=== PATIENT | male | born 1955 | race Caucasian/White ===

== ENCOUNTER 2021-09-22 10:29 | Outpatient (CLI) | payer OTHER, SELFPAY ==
[2021-09-22 11:03] LABS: Hematocrit 48.9 % (37.0-46.0); Hemoglobin 17.6 g/dL (12.4-15.3); Mean Corpuscular Hemoglobin 34.9 pg (27.0-31.0); Mean Platelet Volume 10.3 fl (8.7-11.0); Platelet Count Result 225 K/mm3 (150-420); Red Blood Count 5.04 M/mm3 (4.70-6.10); Red Cell Distribution Width 11.8 % (11.6-14.4); White Blood Count 7.2 K/mm3 (4.8-10.8)
[2021-09-22 11:20] LABS: Alanine Aminotransferase 29 U/L (16-63); Albumin Level 3.9 g/dL (3.4-5.0); Alkaline Phosphatase 66 U/L (46-116); Anion Gap 12 mmol/L (8-16); Aspartate Amino Transferase 18 U/L (15-37); Bilirubin,Total 0.8 mg/dL (0.00-1.00); Blood Urea Nitrogen 10 mg/dL (7-18); Calcium 8.9 mg/dL (8.5-10.1); Carbon Dioxide 26 mmol/L (21-32); Chloride 99 mmol/L (98-108); Cholesterol 149 mg/dL (0-200); Estimated Glomerular Filt Rate > 60; Glucose 121 mg/dL (70-99); HDL Direct 52 mg/dL (40-60); LDL Cholesterol Calculated 85 mg/dL (<130); Osmolality Calculated 284 mOsm/kg (285-295); Potassium 3.9 mmol/L (3.5-5.1); Sodium 137 mmol/L (136-145); Total Protein 7.3 g/dL (6.4-8.2); Triglycerides 60 mg/dL (0-150)
== END 2021-09-22 10:30 | disposition home or self-care (01) ==
PROVIDERS: PCP Family Medicine; Visit Provider Family Medicine
DX: K21.9 Gastro-esophageal reflux disease without esophagitis (principal); Z00.00 Encounter for general adult medical examination without abnormal findings
CPT/HCPCS: 36415; 80053; 80061; 83013; 85027

== ENCOUNTER 2021-10-20 10:26 | Outpatient (CLI) | payer OTHER, SELFPAY ==
[2021-10-23 16:24] LABS: H pylori, Urea Breath NOT DETECTED (NOT DETECTED)
== END 2021-10-20 10:27 | disposition home or self-care (01) ==
LOC: CHSLAB 10:28
PROVIDERS: PCP Family Medicine; Visit Provider Family Medicine
DX: K21.9 Gastro-esophageal reflux disease without esophagitis (principal)
CPT/HCPCS: 83013

== ENCOUNTER 2023-09-10 14:02 | Emergency (ER) | payer MEDICARE, SELFPAY ==
--- NOTE | ~2023-09-10 | XR_ITS ---
XR chest 1V portable DATE: 09/10/2023 16:48 INDICATION: Cough TECHNIQUE: Portable AP views on 09/10/2023 at 1649 hours COMPARISON: 04/16/2019 CTA chest 04/16/2019 2 view chest FINDINGS: Normal heart size. Mild aortic unfolding. No hilar or mediastinal enlargement. Minimal atelectasis is suggested at the lung bases. The lungs otherwise appear clear of infiltrate or consolidation. No pleural effusion or pulmonary vascular congestion or pneumothorax. Osteopenia. IMPRESSION: Minimal atelectasis is suggested at the lung bases; otherwise no active cardiopulmonary d isease Reviewed, dictated and finalized at location B. [place] [facility] IMPRESSION: Minimal atelectasis is suggested at the lung bases; otherwise no ac tive cardiopulmonary disease
[2023-09-10 14:52] LABS: Influenza A QL RT-PCR Positive (Negative); Influenza B QL RT-PCR Negative (Negative); RSV RNA, RT-PCR Negative (Negative); SARS-CoV-2 RNA PCR Negative (Negative)
[2023-09-10 15:00] VITALS: BP 152/96; PULSE 70; RESP 20; TEMP 36.6; O2SAT 96
--- NOTE | 2023-09-10 16:27 | ED.URI ---
HPI - URI/Sore Throat General Chief Complaint: Upper Respiratory Infection Stated Complaint: flu symptoms Source: patient Mode of arrival: ambulatory Limitations: no limitations History of Present Illness HPI Narrative: 68-year-old male, smoker presents to the ER with a one-week history of -- cough with mucoid sputum. -- Body ache -- diarrhea. no abdominal pain. No nausea/ vomiting. patient's tested positive for influenza A. Patient denied any fever. MD elicited complaint: cough and nasal congestion Onset (ago): day(s) ( Seven days) Consistency: constant Severity: moderate Description of mucous: clear Able to tolerate fluids by mouth: Yes Exacerbating factors: nothing Relieving factors: nothing Context: sick contacts Associated symptoms: myalgias, cough, shortness of breath and diarrhea Treatments prior to arrival: none Related Data Allergies Allergy/AdvReac Type Severity Reaction Status Date / Time No Known Allergies Allergy Verified 09/10/23 15:24 Review of Systems Review of Systems: All systems reviewed & are unremarkable except as noted in HPI and below Constitutional: Constitutional: Reports as per HPI and Reports no additional constitutional complaints Eyes: Eyes: Reports as per HPI and Reports no additional eye complaints ENT: Reports system reviewed and no additional complaints, except as documented, Reports as per HPI and Reports nasal congestion Cardiovascular: Cardiovascular: Reports as per HPI and Reports no additional cardiovascular complaints Respiratory: Respiratory: Reports as per HPI, Reports no additional respiratory complaints, Reports chest congestion, Reports cough and Reports dyspnea Gastrointestinal: Gastrointestinal: Reports as per HPI, Reports no additional gastrointestinal complaints and Reports diarrhea Genitourinary: Genitourinary: Reports no additional male genitourinary complaints Musculoskeletal: Musculoskeletal: Reports no additional musculoskeletal complaints and Reports as per HPI Integumentary/Breasts: Skin/Breast: Reports system reviewed and no additional complaints, except as docu and Reports as per HPI Neurologic: Reports system reviewed and no additional complaints, except as documented and Reports as per HPI Psychiatric: Psychiatric: Reports no additional psychiatric complaints and Reports as per HPI Endocrine: Endocrine: Reports no additional endocrine complaints and Reports as per HPI Hematologic/Lymphatic: Hematologic/Lymphatic: Reports no additional hematologic/lymphatic complaints and Reports as per HPI Allergic/Immunologic: Allergic/Immunologic: Reports no additional allergic/immunologic complaints and Reports as per HPI [facility] Surgical History Surgical History History of hernia repair Family History Family History Father Family history of heart disease in male family member before age 55 Other Family history of allergic disorder Family history of cardiovascular disease Social History Social History Smoking packs per day: 1 Smoking cigarettes per day: 20.0 Years smoked: 50 Smoking pack-years: 50.00 Smoking status: Current every day smoker Tobacco type: cigarettes Alcohol intake: current Exam Const: General: ill appearing Orientation/consciousness: patient oriented x3 Limitations: no limitations HENMT: Head: normal to inspection Ears: external ears normal Face/Nose/Sinus: Normal external nose present Face and sinus: normal facial exam Mouth: Yes Normal oral and palatal mucosa present Throat: posterior oropharynx normal Eyes: Conjunctivae: conjunctivae normal Pupils: Equal, round and reactive pupils present EOM: EOMs intact bilaterally Direct Ophthalmoscopy: no photophobia Neck: Neck: normal visual inspection, no lymphadenopathy and no meningeal sign
[2023-09-10] MEDS: IPRATROPIUM 0.5 MG/ALBUTEROL SULFATE 2.5 MG AMPUL.NEB 3 ML INHALATION (16:48)
== END 2023-09-10 17:10 | disposition home or self-care (01) ==
PROVIDERS: Emergency Provider Internal Medicine Critical Care Medicine; PCP Nurse Practitioner Family
DX: J10.1 Influenza due to other identified influenza virus with other respiratory manifestations (principal); J20.9 Acute bronchitis, unspecified; F17.210 Nicotine dependence, cigarettes, uncomplicated; Z20.822 Contact with and (suspected) exposure to COVID-19
CPT/HCPCS: 71045; 87637; 99283

== ENCOUNTER 2024-01-22 23:32 | Emergency (ER) | payer MEDICARE, SELFPAY ==
--- NOTE | ~2024-01-22 | CT_ITS ---
CT of the Abdomen and Pelvis: Indication: Abdominal pain Technique: 2.5 mm axial scans were obtained through the abdomen and pelvis following intravenous adm inistration of 100 cc of Omnipaque 350. Dose reduction technique was used on this scan by utilizing a utomated exposure control and iterative reconstruction technique. The dose-length product (DLP) was 9 73.10 mGy-cm. Findings: Scans through the lung bases are unremarkable. The liver, spleen, pancreas, gallbladder, adrenals and kidneys are within normal limits. There are at herosclerotic calcifications of the aorta. There is a 4 cm infrarenal abdominal aortic aneurysm focal ly. No lymphadenopathy. There is wall thickening and pericolonic inflammatory change at the mid descending colon, compatible with acute diverticulitis. No abscess or free air. No bowel obstruction. Images through the pelvis were performed. Urinary bladder unremarkable. No pelvic mass seen. No ascit es. Impression: Acute diverticulitis at the mid descending colon. No abscess, free air, or bowel obstruction. 4 cm infrarenal abdominal aortic aneurysm. Reviewed, dictated and finalized at [facility]. Impression: Acute diverticulitis at the mid descending colon. No abscess, free air, or mervat l obstruction. 4 cm infrarenal abdominal aortic aneurysm.
[2024-01-22 23:32] VITALS: TEMP 37.3
[2024-01-22 23:38] VITALS: BP 160/105; PULSE 85; RESP 18; O2SAT 95
--- NOTE | 2024-01-22 23:43 | ECG_ITS ---
Test Date: 2024-01-22 23:59:29 Measurements Intervals [place] Rate: 77 P: -9 SC: 226 QRS: -60 QRSD: 160 T: 25 QT: 413 QTc: 468 Interpretive Statements SINUS RHYTHM WITH FIRST DEGREE AV BLOCK RIGHT BUNDLE BRANCH BLOCK [120+ ms QRS DURATION, UPRIGHT V1, 40+ ms S IN I/aVL/V4/V5/V6] LEFT ANTERIOR FASCICULAR BLOCK [QRS AXIS <= -45, QR IN I, RS IN II] POSSIBLE SEPTAL MYOCARDIAL INFARCTION , OF INDETERMINATE AGE [30 ms Q WAVE IN V1/V2] Abnormal ECG No previous ECG available for comparison Electronically Signed On 01-26-2024 11:25:08 CDT by Jonas Littlejohn M.D.
[2024-01-22 23:58] LABS: Basophils Absolute Auto 0.07 K/mm3 (0.00-0.10); Basophils Percent Auto 0.7 % (0.0-1.0); Eosinophils Absolute Auto 0.37 K/mm3 (0.02-0.50); Eosinophils Percent Auto 3.6 % (1.0-6.0); Hematocrit 45.3 % (37.0-46.0); Hemoglobin 15.8 g/dL (12.4-15.3); Immature Granulocyte Absolute 0.05 K/mm3 (0.00-0.00); Immature Granulocyte Percent A 0.5 % (0.0-0.0); Lymphocytes Absolute Auto 1.54 K/mm3 (1.10-4.50); Lymphocytes Percent Auto 14.8 % (18.0-42.0); Mean Corpuscular HGB Conc 34.9 g/dL (32-36); Mean Corpuscular Hemoglobin 34.6 pg (27.0-31.0); Mean Corpuscular Volume 99.3 fL (78.0-102.0); Mean Platelet Volume 10.3 fl (8.7-11.0); Monocytes Percent Auto 8.6 % (2.0-11.0); Neutrophils Absolute Auto 7.49 K/mm3 (1.70-7.20); Neutrophils Percent Auto 71.8 % (50.0-70.0); Platelet Count Result 169 K/mm3 (150-420); Red Blood Count 4.56 M/mm3 (4.70-6.10); Red Cell Distribution Width 12.8 % (11.6-14.4); White Blood Count 10.4 K/mm3 (4.8-10.8)
[2024-01-23 00:12] LABS: INR 0.9; Partial Thromboplastin Time 26.8 Sec (23.9-30.70); Prothrombin Time 10.3 Seconds (9.50-12.1)
[2024-01-23 00:25] LABS: Alanine Aminotransferase 16 U/L (16-63); Albumin Level 3.3 g/dL (3.4-5.0); Alkaline Phosphatase 69 U/L (46-116); Anion Gap 9 mmol/L (4-12); Aspartate Amino Transferase 14 U/L (15-37); Bilirubin,Total 0.4 mg/dL (0.00-1.00); Blood Urea Nitrogen 13 mg/dL (7-18); Calcium 8.3 mg/dL (8.5-10.1); Carbon Dioxide 27 mmol/L (21-32); Chloride 104 mmol/L (98-108); Estimated CRCL calculation 85 ml/min; Estimated Glomerular Filt Rate > 60; Glucose 105 mg/dL (70-99); Lipase 38 U/L (16-77); Osmolality Calculated 290 mOsm/kg (285-295); Potassium 3.6 mmol/L (3.5-5.1); Sodium 140 mmol/L (136-145); Total Protein 6.7 g/dL (6.4-8.2)
--- NOTE | 2024-01-23 00:26 | ED.ABDPAIN ---
HPI - Abdominal Pain General Chief Complaint: Abdominal Pain Stated Complaint: lower left quadrant pain Time Seen by Provider: 01/22/24 23:35 Source: patient and EMS Mode of arrival: EMS Limitations: no limitations History of Present Illness HPI narrative: this is a 68-year-old male with no significant past medical history presents via EMS with abdominal pain started earlier today no nausea vomiting chest pain no shortness of breath. No fever chills, patient with no diarrhea or constipation, has a history of diverticulitis. MD elicited complaint: abdominal pain Onset (ago): hour(s) Pain Consistency: constant Location: LLQ Severity: moderate Pain scale (0-10): 6 Quality: aching Related Data Home Medications Medication Instructions Recorded Confirmed pantoprazole 40 mg tablet,delayed 40 mg PO 4XW 01/22/24 01/22/24 release Allergies Allergy/AdvReac Type Severity Reaction Status Date / Time No Known Allergies Allergy Verified 01/22/24 23:51 Review of Systems Review of Systems: All systems reviewed & are unremarkable except as noted in HPI and below PMFSH Past Medical History Medical History Tobacco abuse Surgical History Surgical History History of hernia repair Family History Family History Father Family history of heart disease in male family member before age 55 Other Family history of allergic disorder Family history of cardiovascular disease Social History Social History Smoking packs per day: 1 Smoking cigarettes per day: 20.0 Years smoked: 50 Smoking pack-years: 50.00 Smoking status: Current every day smoker Tobacco type: cigarettes Alcohol intake: current Exam Const: General: healthy appearing and no acute distress Nutritional Appearance: well nourished Orientation/consciousness: patient oriented x3 Limitations: no limitations Eyes: Conjunctivae: conjunctivae normal Resp: Effort & Inspection: normal respiratory effort Auscultation: clear to auscultation bilaterally Cardio: Rate: regular rate Rhythm: regular rhythm GI: GI Palp: Yes Soft to palpation and Yes Tenderness to palpation present (GI) Auscultation: normal bowel sounds : General: Yes bladder normal to palpation Back/Spine/Pelvis: Back: no CVA tenderness Skin: General skin exam: normal color Rashes: no rashes Neuro: General: patient oriented x3, moves all extremities and no meningeal signs Course Course Emergency Course: blood work performed shows a white blood cell count of 10.9, CT scan performed shows that he has acute diverticulitis distal descending colon with no perforation or abscess, will start IV Cipro and IV Flagyl. Pain controlled with some dose of 30mg IV Toradol patient also given IV fluids. Vital Signs Vital signs: Vital Signs Temperature 37.3 C 01/22/24 23:32 Temperature 37.3 C 01/22/24 23:32 Pulse Rate 85 01/22/24 23:38 Respiratory Rate 18 01/22/24 23:38 Blood Pressure 160/105 H 01/22/24 23:38 Pulse Oximetry 95 01/22/24 23:38 Oxygen Delivery Room Air 01/22/24 23:38 MDM - Abdominal Pain Lab Data 01/22/24 23:53 01/22/24 23:53 Labs: Lab Results 01/22/24 Range/Units 23:53 WBC 10.4 (4.8-10.8) K/mm3 RBC 4.56 L (4.70-6.10) M/mm3 Hgb 15.8 H (12.4-15.3) g/dL Hct 45.3 (37.0-46.0) % MCV 99.3 (78.0-102.0) fL MCH 34.6 H (27.0-31.0) pg MCHC 34.9 (32-36) g/dL RDW 12.8 (11.6-14.4) % Plt Count 169 (150-420) K/mm3 MPV 10.3 (8.7-11.0) fl Immature Gran % (Auto) 0.5 H (0.0-0.0) % Neut % (Auto) 71.8 H (50.0-70.0) % Lymph % (Auto) 14.8 L (18.0-42.0) % [place] % (Auto) 8.6 (2.0-11.0) % Eos % (Auto) 3.6 (1.0-6.0) % Baso % (Auto) 0.7 (0.0-1.0) % Ly
[2024-01-23] MEDS: SODIUM CHLORIDE 0.9% IV 1,000 ML 999 ML IV CONT (00:44)
[2024-01-23] MEDS: KETOROLAC 30 MG/ML VIAL (*BKC) IV PUSH (00:45)
[2024-01-23] MEDS: metroNIDAZOLE 500 MG/ISO 100ML 500 MG/100 ML BAG 100 MG IVPB (05:11)
[2024-01-23] MEDS: CIPROFLOXACIN 400 MG/D5W 200ML 200 ML 200 MG IVPB (05:12)
[2024-01-23 05:52] VITALS: BP 178/104; PULSE 70; RESP 18; TEMP 36.6; O2SAT 97
--- NOTE | 2024-01-29 12:42 | PC.NURSE ---
final blood cultures x2 reviewed. no growth after 5 days. no change in plan of care
== END 2024-01-23 06:00 | disposition home or self-care (01) ==
PROVIDERS: Emergency Provider Emergency Medicine; PCP Family Medicine
DX: K57.92 Diverticulitis of intestine, part unspecified, without perforation or abscess without bleeding (principal); F17.210 Nicotine dependence, cigarettes, uncomplicated
CPT/HCPCS: 36415; 74177; 80053; 83605; 83690; 85025; 85610; 85730; 87040; 93005; 96361; 96365; 96368; 96375; 99284; J0744; J1836; J1885; J7030; Q9967

== ENCOUNTER 2024-11-10 15:21 | Outpatient (CLI) | payer MEDICARE, SELFPAY ==
--- NOTE | ~2024-11-10 | XR_ITS ---
EXAMINATION: XR chest 2V 11/10/2024 16:13 INDICATION: Tachycardia PROCEDURE: 2 view chest COMPARISON: 09/10/2023 FINDINGS: Bibasilar airspace disease may represent atelectasis or pneumonia. The cardiomediastinal si lhouette is within normal limits. There are no pleural effusions. There is no pneumothorax suspecte d. There is dextroscoliosis of the lower thoracic spine. IMPRESSION: 1: Bibasilar airspace disease, atelectasis versus pneumonia. Reviewed, dictated and finalized at location A.
--- NOTE | 2024-11-10 15:43 | ECG_ITS ---
Test Date: 2024-11-10 15:57:17 Measurements Intervals [place] Rate: 128 P: 0 MA: 0 QRS: -33 QRSD: 172 T: 65 QT: 377 QTc: 551 Interpretive Statements ATRIAL FLUTTER/TACHYCARDIA WITH RAPID VENTRICULAR RESPONSE LEFT AXIS DEVIATION RIGHT BUNDLE BRANCH BLOCK ABNORMAL ECG Compared to ECG 01/22/2024 23:59:29 SINUS RHYTHM NO LONGER PRESENT Electronically Signed On 11-10-2024 15:59:03 CDT by Dwight Olmedo D.O.
[2024-11-10 15:51] LABS: Basophils Absolute Auto 0.08 K/mm3 (0.00-0.10); Basophils Percent Auto 1.1 % (0.0-1.0); Eosinophils Absolute Auto 0.28 K/mm3 (0.02-0.50); Hematocrit 47.6 % (37.0-46.0); Hemoglobin 15.7 g/dL (12.4-15.3); Immature Granulocyte Absolute 0.04 K/mm3 (0.00-0.00); Immature Granulocyte Percent A 0.6 % (0.0-0.0); Lymphocytes Percent Auto 24.4 % (18.0-42.0); Mean Corpuscular Hemoglobin 32.8 pg (27.0-31.0); Mean Corpuscular Volume 99.4 fL (78.0-102.0); Monocytes Absolute Auto 0.47 K/mm3 (0.10-0.90); Monocytes Percent Auto 6.7 % (2.0-11.0); Neutrophils Percent Auto 63.2 % (50.0-70.0); Platelet Count Result 192 K/mm3 (150-420); Red Blood Count 4.79 M/mm3 (4.70-6.10); Red Cell Distribution Width 12.9 % (11.6-14.4)
[2024-11-10 16:34] LABS: Alanine Aminotransferase 31 U/L (16-63); Albumin Level 4.1 g/dL (3.4-5.0); Alkaline Phosphatase 82 U/L (46-116); Anion Gap 8 mmol/L (4-12); Aspartate Amino Transferase 18 U/L (15-37); Bilirubin,Total 0.8 mg/dL (0.00-1.00); Blood Urea Nitrogen 12 mg/dL (7-18); Calcium 9.1 mg/dL (8.5-10.1); Carbon Dioxide 28 mmol/L (21-32); Chloride 104 mmol/L (98-108); Cholesterol 162 mg/dL (0-200); Estimated Glomerular Filt Rate > 60; Free T4 Free Thyroxine 1.15 ng/dL (0.76-1.46); Glucose 103 mg/dL (70-99); HDL Direct 50 mg/dL (40-60); LDL Cholesterol Calculated 100 mg/dL (<130); Magnesium 2.2 mg/dL (1.8-2.4); Osmolality Calculated 289 mOsm/kg (285-295); Potassium 3.9 mmol/L (3.5-5.1); Sodium 140 mmol/L (136-145); Total Protein 7.5 g/dL (6.4-8.2); Triglycerides 61 mg/dL (0-150)
[2024-11-10 17:12] LABS: Thyroid Stimulating Hormone 1.05 uIU/mL (0.36-3.74)
[2024-11-12 03:23] LABS: Total Triiodothyronine (T3) 101 ng/dL (76-181)
== END 2024-11-10 15:22 | disposition home or self-care (01) ==
PROVIDERS: PCP Nurse Practitioner Family; Visit Provider Nurse Practitioner Family
DX: E03.9 Hypothyroidism, unspecified (principal); R00.0 Tachycardia, unspecified; Z13.6 Encounter for screening for cardiovascular disorders; I10 Essential (primary) hypertension; R79.89 Other specified abnormal findings of blood chemistry; R91.8 Other nonspecific abnormal finding of lung field; I45.10 Unspecified right bundle-branch block; R94.31 Abnormal electrocardiogram [ECG] [EKG]
CPT/HCPCS: 36415; 71046; 80053; 80061; 83735; 84439; 84443; 84480; 85025; 93005

== ENCOUNTER 2024-11-12 07:57 | Outpatient (CLI) | payer MEDICARE, SELFPAY ==
--- NOTE | 2024-11-12 08:06 | ECG_ITS ---
Test Date: 2024-11-12 08:21:27 Measurements Intervals [place] Rate: 127 P: 0 [place]: 0 QRS: -31 QRSD: 154 T: 68 QT: 361 QTc: 527 Interpretive Statements ATRIAL FLUTTER/TACHYCARDIA WITH RAPID VENTRICULAR RESPONSE LEFT AXIS DEVIATION RIGHT BUNDLE BRANCH BLOCK BASELINE ARTIFACT- I, III, AVR, AVL, AVF, V1-V4 ABNORMAL ECG Compared to ECG 11/10/2024 15:57:17 NO SIGNIFICANT CHANGE Electronically Signed On 11-12-2024 08:33:20 CDT by Dwight Olmedo D.O.
== END 2024-11-12 07:58 | disposition home or self-care (01) ==
LOC: CHSCARD 07:58
PROVIDERS: PCP Nurse Practitioner Family; Visit Provider Nurse Practitioner Family
DX: I48.91 Unspecified atrial fibrillation (principal); R00.0 Tachycardia, unspecified; I45.10 Unspecified right bundle-branch block; R94.31 Abnormal electrocardiogram [ECG] [EKG]
CPT/HCPCS: 93005

== ENCOUNTER 2024-11-12 08:30 | Emergency (ER) | payer MEDICARE, SELFPAY ==
[2024-11-12] VITALS (22 sets, daily range): BP systolic 114–161; BP diastolic 88–128; PULSE 99–129; RESP 13–26; TEMP 36.2; O2SAT 92–97
--- NOTE | ~2024-11-12 | CT_ITS ---
Clinical Indication: Shortness of breath CT Scan of the Chest with Contrast: Technique: Contiguous sections were acquired throughout the chest after intravenous administration of 100 cc of Omnipaque 350. Dose reduction technique was used on this scan by utilizing automated expos ure control and iterative reconstruction technique. The dose-length product (DLP) was 726.41 mGy-cm. Findings: There is no evidence of any significant mediastinal, hilar or axillary lymphadenopathy. There is no f illing defect in the pulmonary arterial tree to suggest pulmonary embolus. There is no evidence of ao rtic aneurysm. No pericardial effusion. Small right pleural effusion and minimal left pleural effusion are present. There is minimal interstitial edema at the lung bases. Images through the upper abdomen reveal no abnormalities. Impression: No evidence of pulmonary embolus, aortic dissection, or aortic aneurysm. Small right pleural effusion and minimal left pleural effusion Minimal interstitial edema at the lung bases. Reviewed, dictated and finalized at [facility]. Impression: No evidence of pulmonary embolus, aortic dissection, or aortic aneurysm. Small right pleural effusion and minimal left pleural effusion Minimal interstitial edema at the lung bases.
--- NOTE | ~2024-11-12 | XR_ITS ---
EXAMINATION: XR chest 1V portable DATE: 11/12/2024 09:23 INDICATION: Shortness of breath TECHNIQUE: frontal view of the chest was obtained. COMPARISON: Chest radiograph dated 11/10/2024 FINDINGS: Interval improvement in now minimal left basilar opacities which could represent atelectasis or pneum onia. Right lung is clear. No pulmonary edema, pleural effusion or pneumothorax. The cardiomediastina l silhouette is normal. IMPRESSION: 1. Interval improvement in normal left basilar atelectasis versus pneumonia. Reviewed, dictated and finalized at location A.
--- NOTE | 2024-11-12 08:38 | ED_ITS ---
HPI - Arrhythmia/Palpitations General Chief Complaint: Recheck/Abnormal Lab/Rx Stated Complaint: abnormal EKG Time Seen by Provider: 11/12/24 08:38 Source: patient Mode of arrival: ambulatory Limitations: no limitations History of Present Illness HPI narrative: patient is a 69-year-old male that has new onset atrial flutter with RVR sent to the emergency room the primary doctor. Patient is asymptomatic. No palpitations or chest pain. He does have some shortness of breath and was put on azithromycin yesterday for bronchitis. he had an EKG for the shortness of breath and they found the atrial flutter. patient is not currently on blood pressure medicine as of 2 days ago. They just restarted his medicine. on further review of the EKG, it appears this is sinus tachycardia and not atrial flutter. MD complaint: rapid heart beat ( On EKG) Onset (ago): unknown Duration: constant Severity: mild Context: other ( Patient was found to have atrial flutter on EKG for shortness of breath by primary doctor and sent for evaluation and treatment to the ER today) Arrhythmia history: other ( hypertension, GERD, COPD) Associated symptoms: shortness of breath Treatments prior to arrival: other ( none) Related Data Home Medications ?Medication ?Instructions ?Recorded ?Confirmed ?Last Taken ?Type pantoprazole 40 mg tablet,delayed 40 mg PO 4XW 01/22/24 11/10/24 Unknown History release Allergies Allergy/AdvReac Type Severity Reaction Status Date / Time No Known Allergies Allergy Verified 11/12/24 08:53 Review of Systems 2 Review of Systems: All systems reviewed & are unremarkable except as noted in HPI and below Constitutional: Constitutional: Reports no additional constitutional complaints Eyes: Eyes: Reports no additional eye complaints ENT: Reports system reviewed and no additional complaints, except as documented Cardiovascular: Cardiovascular: Reports no additional cardiovascular complaints Respiratory: Respiratory: Reports no additional respiratory complaints Gastrointestinal: Gastrointestinal: Reports no additional gastrointestinal complaints Genitourinary: Genitourinary: Reports no additional male genitourinary complaints Musculoskeletal: Musculoskeletal: Reports no additional musculoskeletal complaints Integumentary/Breasts: Skin/Breast: Reports system reviewed and no additional complaints, except as docu Neurologic: Reports system reviewed and no additional complaints, except as documented Psychiatric: Psychiatric: Reports no additional psychiatric complaints Endocrine: Endocrine: Reports no additional endocrine complaints Hematologic/Lymphatic: Hematologic/Lymphatic: Reports no additional hematologic/lymphatic complaints Allergic/Immunologic: Allergic/Immunologic: Reports no additional allergic/immunologic complaints [facility] Past Medical History Medical History Tobacco abuse Surgical History Surgical History History of hernia repair Family History Family History Father Family history of heart disease in male family member before age 55 Other Family history of allergic disorder Family history of cardiovascular disease Social History Social History Smoking packs per day: 1 Smoking cigarettes per day: 20.0 Years smoked: 50 Smoking pack-years: 50.00 Smoking status: Current every day smoker Tobacco type: cigarettes Alcohol intake: current Exam 2 Const: General: healthy appearing Nutritional Appearance: well nourished Orientation/consciousness: patient oriented x3 Limitations: no limitations HENMT: Head: normal to inspection Ears: external ears normal F coral/Nose/Sinus: Normal external nose present Eyes: Conjunctivae: conjunctivae normal Pupils: Equal, round and reactive pupils present EOM: EOMs intact bilaterally Neck: Neck: normal visual inspection Chest: Chest palpation & inspection: normal inspection of the chest Resp: Effort & Inspection: normal respiratory effort and not labored A uscultation: clear to auscultation bilaterally and no crackles Cardio: Rate: tachycardic Rhythm: abnormal rhythm Heart sounds: no murmurs GI: Inspection: non-distended Auscultation: normal bowel sounds : General: Yes bladder normal to palpation Back/Spine/Pelvis: Back: no CVA tenderness Skin: General skin exam: normal color Rashes: no rashes Wounds: no wounds Neuro: General: patient oriented x3 Cranial nerves: Yes Nystagmus not present Speech: normal speech Gait exam (Neuro): Normal gait present Extrem: General: normal to inspection Psych: Mental Status: mental status grossly normal Affect: normal affect Attitude: cooperative Course Vital Signs Vital signs: Vital Signs Temperature 36.2 C L 11/12/24 08:30 Pulse Rate 128 H 11/12/24 08:30 Respiratory Rate 20 11/12/24 08:30 Blood Pressure 161/123 H 11/12/24 08:30 Pulse Oximetry 97 11/12/24 08:30 Oxygen Delivery Room Air 11/12/24 08:30 Temperature 36.2 C L 11/12/24 08:30 Pulse Rate 123 H 11/12/24 11:24 Respiratory Rate 20 11/12/24 11:16 Blood Pressure 125/98 H 11/12/24 11:24 Pulse Oximetry 92 11/12/24 11:16 Oxygen Delivery Room Air 11/12/24 08:30 MDM - Arrhythmia/Palpitations MDM Narrative Medical decision making narrative: Patient is 69-year-old male with new onset atrial flutter and RVR found for shortness of breath workup by primary doctor today; actually, he is having sinus tachycardia and not atrial flutter on further examination of EKG. We will do a cardiopulmonary workup at this time. patient has been going back and forth from normal sinus rhythm at times to a flutter/ fib with RVR. He has responded to 20 mg of labetalol now. His blood pressure however is going back up at this time. Cardiology suggested for assistance.The patient decided to go AMA after we reviewed risks and benefits of being transferred to [facility] for Cardiology. Patient is AAO x4. Patient has the decision making capacity and reasoning abilities to make decision for AMA. He understands the risks and benefits. He signed the AMA form. I explained that he has AFib and flutter with hypertension and tachycardia which will need cardiology opinion at this time. I will give him a beta-markell to cover both of those problems temporarily. He said he has to go home to care for his . He also has elevated BNP which could relate to a valvular disease or other cardiac issue. Patient understands that he could get worse or even could occur. Patient has no psychosis or other medical or mental issue to stop him from making capacity decision for AMA. Lab Data Attestation: I reviewed the patient's lab results. 11/12/24 09:30 11/12/24 09:30 Labs: Lab Results 11/12/24 11/12/24 11/12/24 Range/Units 09:30 09:32 09:52 WBC 6.8 (4.8-10.8) K/mm3 RBC 4.70 (4.70-6.10) M/mm3 Hgb 15.7 H (12.4-15.3) g/dL Hct 46.3 H (37.0-46.0) % MCV 98.5 (78.0-102.0) fL MCH 33.4 H (27.0-31.0) pg MCHC 33.9 (32-36) g/dL RDW 13.0 (11.6-14.4) % Plt Count 160 (150-420) K/mm3 MPV 10.9 (8.7-11.0) fl Immature Gran % (Auto) 0.4 H (0.0-0.0) % Neut % (Auto) 65.7 (50.0-70.0) % Lymph % (Auto) 20.1 (18.0-42.0) % [place] % (Auto) 8.5 (2.0-11.0) % Eos % (Auto) 4.1 (1.0-6.0) % Baso % (Auto) 1.2 H (0.0-1.0) % Lymph # (Auto) 1.37 (1.10-4.50) K/mm3 [place] # (Auto) 0.58 (0.10-0.90) K/mm3 Eos # (Auto) 0.28 (0.02-0.50) K/mm3 Baso # (Auto) 0.08 (0.00-0.10) K/mm3 Abs Immat Gran (auto) 0.03 H (0.00-0.00) K/mm3 Absolute Neuts (auto) 4.46 (1.70-7.20) K/mm3 Absolute Nucleated RBC 0.00 (0.00-0.00) K/mm3 Nucleated RBC % 0.0 (0-0.0) % PT 11.3 (9.50-12.1) Seconds INR 1.0 APTT 26.6 (23.9-30.70) Sec D-Dimer 0.84 H* (0.19-0.50) mg/L Sodium 140 (136-145) mmol/L Potassium 3.8 (3.5-5.1) mmol/L Chloride 104 (98-108) mmol/L Carbon Dioxide 29 (21-32) mmol/L Anion Gap 7 (4-12) mmol/L BUN 15 (7-18) mg/dL Creatinine 1.07 (0.70-1.30) mg/dL Estim Creat Clear Calc 75 ml/min Estimated GFR > 60 (59 - ) Glucose 98 (70-99) mg/dL Calculated Osmolality 290 (285-295) mOsm/kg Lactic Acid 1.3 (0.4-2.0) mmol/L Calcium 8.8 (8.5-10.1) mg/dL Magnesium (1.8-2.4) mg/dL Total Bilirubin 1.1 H (0.00-1.00) mg/dL AST 15 (15-37) U/L ALT 24 (16-63) U/L Alkaline Phosphatase 86 (46-116) U/L Troponin I 29.3 (0.00-60.4) ng/L NT-Pro-B Natriuret Pep 5841 H (0-125) pg/mL Total Protein 7.6 (6.4-8.2) g/dL Albumin 3.9 (3.4-5.0) g/dL TSH 1.31 (0.36-3.74) uIU/mL Influenza A (RT-PCR) Negative (Negative) Influenza B (RT-PCR) Negative (Negative) RSV (RT-PCR) Negative (Negative) SARS-CoV-2 RNA (RT-PCR) Negative (Negative) 11/12/24 Range/Units 10:35 WBC (4.8-10.8) K/mm3 RBC (4.70-6.10) M/mm3 Hgb (12.4-15.3) g/dL Hct (37.0-46.0) % MCV (78.0-102.0) fL MCH (27.0-31.0) pg MCHC (32-36) g/dL RDW (11.6-14.4) % Plt Count (150-420) K/mm3 MPV (8.7-11.0) fl Immature Gran % (Auto) (0.0-0.0) % Neut % (Auto) (50.0-70.0) % Lymph % (Auto) (18.0-42.0) % [place] % (Auto) (2.0-11.0) % Eos % (Auto) (1.0-6.0) % Baso % (Auto) (0.0-1.0) % Lymph # (Auto) (1.10-4.50) K/mm3 [place] # (Auto) (0.10-0.90) K/mm3 Eos # (Auto) (0.02-0.50) K/mm3 Baso # (Auto) (0.00-0.10) K/mm3 Abs Immat Gran (auto) (0.00-0.00) K/mm3 Absolute Neuts (auto) (1.70-7.20) K/mm3 Absolute Nucleated RBC (0.00-0.00) K/mm3 Nucleated RBC % (0-0.0) % PT (9.50-12.1) Seconds INR APTT (23.9-30.70) Sec D-Dimer (0.19-0.50) mg/L Sodium (136-145) mmol/L Potassium (3.5-5.1) mmol/L Chloride (98-108) mmol/L Carbon Dioxide (21-32) mmol/L Anion Gap (4-12) mmol/L BUN (7-18) mg/dL Creatinine (0.70-1.30) mg/dL Estim Creat Clear Calc ml/min Estimated GFR (59 - ) Glucose (70-99) mg/dL Calculated Osmolality (285-295) mOsm/kg Lactic Acid (0.4-2.0) mmol/L Calcium (8.5-10.1) mg/dL Magnesium 2.0 (1.8-2.4) mg/dL Total Bilirubin (0.00-1.00) mg/dL AST (15-37) U/L ALT (16-63) U/L Alkaline Phosphatase (46-116) U/L Troponin I (0.00-60.4) ng/L NT-Pro-B Natriuret Pep (0-125) pg/mL Total Protein (6.4-8.2) g/dL Albumin (3.4-5.0) g/dL TSH (0.36-3.74) uIU/mL Influenza A (RT-PCR) (Negative) Influenza B (RT-PCR) (Negative) RSV (RT-PCR) (Negative) SARS-CoV-2 RNA (RT-PCR) (Negative) Imaging Data Attestation: I personally reviewed and interpreted this imaging study as follows: Radiologist's impression: Chest x-ray shows resolving pneumonia left lung base CTA of the chest is negative for PE and any other acute process at this time ECG Data EKG #1: Attestation: I personally reviewed and interpreted this ECG as follows: ECG completion date: 11/12/24 ECG completion time: 09:27 Prior ECG tracings: available for review Interpretation: EKG brought to the emergency room done at 8:00 a.m. this morning showed atrial flutter with RVR on the report but actually on examination of the EKG it is sinus tachycardia EKG Interpretation: tachycardia, sinus rhythm, no ectopy, non-specific ST changes, normal QRS, RBBB, normal QT and NL axis Discharge Plan Discharge Clinical Impression: Atrial fib/flutter, transient, Asymptomatic hypertensive urgency, Elevated brain natriuretic peptide (BNP) level, Tachycardia Patient Disposition: Left Against Medical Advice Condition: Guarded Prognosis Patient Language: [place] Prescriptions: New metoprolol succinate [Toprol XL] 25 mg tablet extended release 24 hr 25 mg PO DAILY Qty: 30 0RF No Action pantoprazole 40 mg tablet,delayed release (DR/EC) 40 mg PO 4XW azithromycin [Zithromax Z-Usama] 250 mg tablet See Rx Instructions PO .COMPLEX Qty: 6 0RF Rx Instructions: take 500 mg today (day 1), then 250 mg for 4 days (days 2-5) PO lisinopril-hydrochlorothiazide 10-12.5 mg tablet 1 tablet PO DAILY Qty: 30 3RF Airsupra 90-80 mcg/actuation HFA aerosol inhaler 2 inh inhalation ONCE Qty: 5.9 0RF Rx Instructions: *SAMPLE* LOT:[id number] EXP: 03/11/25 [facility]:[id number] 1 BOX GIVEN Follow-up/Referrals: Taylor Najera NP [Primary Care Provider] - Time of Disposition: 12:18
--- NOTE | 2024-11-12 09:09 | ECG_ITS ---
Test Date: 2024-11-12 09:24:37 Measurements Intervals [place] Rate: 127 P: 48 DC: 218 QRS: -27 QRSD: 166 T: 74 QT: 368 QTc: 536 Interpretive Statements ATRIAL FLUTTER/TACHYCARDIA WITH RAPID VENTRICULAR RESPONSE RIGHT BUNDLE BRANCH BLOCK BASELINE ARTIFACT- I, II, III, AVR, AVL ABNORMAL ECG Compared to ECG 11/12/2024 08:21:27 NO SIGNIFICANT CHANGE Electronically Signed On 11-12-2024 09:36:15 CDT by Dwight Olmedo D.O.
[2024-11-12] MEDS: LABETALOL HCL INJ 100 MG/20 ML VIAL 10 MG IV PUSH ×3 (09:21→11:57)
[2024-11-12 09:36] LABS: Basophils Absolute Auto 0.08 K/mm3 (0.00-0.10); Basophils Percent Auto 1.2 % (0.0-1.0); Eosinophils Absolute Auto 0.28 K/mm3 (0.02-0.50); Eosinophils Percent Auto 4.1 % (1.0-6.0); Hematocrit 46.3 % (37.0-46.0); Hemoglobin 15.7 g/dL (12.4-15.3); Immature Granulocyte Absolute 0.03 K/mm3 (0.00-0.00); Immature Granulocyte Percent A 0.4 % (0.0-0.0); Lymphocytes Absolute Auto 1.37 K/mm3 (1.10-4.50); Lymphocytes Percent Auto 20.1 % (18.0-42.0); Mean Corpuscular HGB Conc 33.9 g/dL (32-36); Mean Corpuscular Hemoglobin 33.4 pg (27.0-31.0); Mean Corpuscular Volume 98.5 fL (78.0-102.0); Mean Platelet Volume 10.9 fl (8.7-11.0); Monocytes Absolute Auto 0.58 K/mm3 (0.10-0.90); Monocytes Percent Auto 8.5 % (2.0-11.0); Neutrophils Absolute Auto 4.46 K/mm3 (1.70-7.20); Neutrophils Percent Auto 65.7 % (50.0-70.0); Platelet Count Result 160 K/mm3 (150-420); White Blood Count 6.8 K/mm3 (4.8-10.8)
[2024-11-12 09:54] LABS: Lactic Acid Reflex 1.3 mmol/L (0.4-2.0)
[2024-11-12 09:58] LABS: NT Pro B Type Natriuretic Pept 5841 pg/mL (0-125)
[2024-11-12 10:00] LABS: Partial Thromboplastin Time 26.6 Sec (23.9-30.70); Prothrombin Time 11.3 Seconds (9.50-12.1)
[2024-11-12 10:02] LABS: Alanine Aminotransferase 24 U/L (16-63); Albumin Level 3.9 g/dL (3.4-5.0); Alkaline Phosphatase 86 U/L (46-116); Anion Gap 7 mmol/L (4-12); Aspartate Amino Transferase 15 U/L (15-37); Bilirubin,Total 1.1 mg/dL (0.00-1.00); Blood Urea Nitrogen 15 mg/dL (7-18); Calcium 8.8 mg/dL (8.5-10.1); Carbon Dioxide 29 mmol/L (21-32); Chloride 104 mmol/L (98-108); D Dimer 0.84 mg/L (0.19-0.50); Estimated CRCL calculation 75 ml/min; Estimated Glomerular Filt Rate > 60; Glucose 98 mg/dL (70-99); Osmolality Calculated 290 mOsm/kg (285-295); Potassium 3.8 mmol/L (3.5-5.1); Sodium 140 mmol/L (136-145); Thyroid Stimulating Hormone 1.31 uIU/mL (0.36-3.74); Total Protein 7.6 g/dL (6.4-8.2); Troponin I 29.3 ng/L (0.00-60.4)
[2024-11-12 10:34] LABS: Influenza A QL RT-PCR Negative (Negative); Influenza B QL RT-PCR Negative (Negative); RSV RNA, RT-PCR Negative (Negative); SARS-CoV-2 RNA PCR Negative (Negative)
--- NOTE | 2024-11-12 10:38 | ECG_ITS ---
Test Date: 2024-11-12 10:46:55 Measurements Intervals [place] Rate: 110 P: 0 VT: 0 QRS: -82 QRSD: 157 T: 80 QT: 366 QTc: 496 Interpretive Statements ATRIAL FLUTTER/TACHYCARDIA WITH RAPID VENTRICULAR RESPONSE RIGHT BUNDLE BRANCH BLOCK LEFT ANTERIOR FASCICULAR BLOCK ABNORMAL ECG Compared to ECG 11/12/2024 09:24:37 Left anterior fascicular block now present Electronically Signed On 11-12-2024 10:59:02 CDT by Dwight Olmedo D.O.
--- NOTE | 2024-11-12 12:16 | PC.NURSE ---
MD spoke with pt about transfer to another hospital for cardiac admission and pt has chosen to leave ED AMA due to need for getting home affairs in order. Pt was told to return to ED for worsening symptoms, as well as to continue cardiac workup to be transferred for needed care.
== END 2024-11-12 12:40 | disposition left against medical advice (07) ==
PROVIDERS: Emergency Provider Emergency Medicine; PCP Nurse Practitioner Family
DX: I48.91 Unspecified atrial fibrillation (principal); I16.0 Hypertensive urgency; R79.89 Other specified abnormal findings of blood chemistry; J44.9 Chronic obstructive pulmonary disease, unspecified; F17.210 Nicotine dependence, cigarettes, uncomplicated; Z20.822 Contact with and (suspected) exposure to COVID-19
CPT/HCPCS: 36415; 71045; 71275; 80053; 83605; 83735; 83880; 84443; 84484; 85025; 85380; 85610; 85730; 87040; 87637; 93005; 96374; 96376; 99284; Q9967

== ENCOUNTER 2024-11-12 16:33 | Emergency (ER) | payer MEDICARE, SELFPAY ==
[2024-11-12] VITALS (26 sets, daily range): BP systolic 125–157; BP diastolic 90–124; PULSE 122–127; RESP 8–28; TEMP 36.2–36.6; O2SAT 89–99
--- NOTE | 2024-11-12 16:44 | ED_ITS ---
HPI - Arrhythmia/Palpitations General Chief Complaint: Arrhythmia/Palpitations Stated Complaint: abnormal EKG Time Seen by Provider: 11/12/24 16:43 Source: patient Mode of arrival: ambulatory Limitations: no limitations History of Present Illness HPI narrative: Patient is a 69-year-old male that left AMA to deal with some business at home and came back to the hospital for admission/ transfer to [place]. Patient has new onset atrial fib / flutter and hypertensive urgency and elevated BNP. We will check some basic labs again and EKG and get him ready for transfer. I gave the patient Toprol XL 25 mg which he started today with the AMA. complaint: palpitations Onset (ago): day(s) ( One) Duration: intermittent Severity: mild Context: other ( patient got outpatient EKG today and was found to be in atrial fib/ flutter and sent to the ER; he was having shortness of breath) Arrhythmia history: other ( hypertension) Associated symptoms: shortness of breath ( Related to a bronchitis and he was started on azithromycin which we are holding at this time with arrhythmia possibilities) Treatments prior to arrival: beta-markell Related Data Home Medications ?Medication ?Instructions ?Recorded ?Confirmed ?Last Taken ?Type pantoprazole 40 mg tablet,delayed 40 mg PO 4XW 01/22/24 11/10/24 Unknown History release Allergies Allergy/AdvReac Type Severity Reaction Status Date / Time No Known Allergies Allergy Verified 11/12/24 16:36 Review of Systems Review of Systems: All systems reviewed & are unremarkable except as noted in HPI and below Constitutional: Constitutional: Reports no additional constitutional complaints Eyes: Eyes: Reports no additional eye complaints ENT: Reports system reviewed and no additional complaints, except as documented Cardiovascular: Cardiovascular: Reports no additional cardiovascular complaints Respiratory: Respiratory: Reports no additional respiratory complaints Gastrointestinal: Gastrointestinal: Reports no additional gastrointestinal complaints Genitourinary: Genitourinary: Reports no additional male genitourinary complaints Musculoskeletal: Musculoskeletal: Reports no additional musculoskeletal complaints Integumentary/Breasts: Skin/Breast: Reports system reviewed and no additional complaints, except as docu Neurologic: Reports system reviewed and no additional complaints, except as documented Psychiatric: Psychiatric: Reports no additional psychiatric complaints Endocrine: Endocrine: Reports no additional endocrine complaints Hematologic/Lymphatic: Hematologic/Lymphatic: Reports no additional hematologic/lymphatic complaints Allergic/Immunologic: Allergic/Immunologic: Reports no additional allergic/immunologic complaints PMFSH Past Medical History Medical History Tobacco abuse Surgical History Surgical History History of hernia repair Family History Family History Father Family history of heart disease in male family member before age 55 Other Family history of allergic disorder Family history of cardiovascular disease Social History Social History Smoking packs per day: 1 Smoking cigarettes per day: 20.0 Years smoked: 50 Smoking pack-years: 50.00 Smoking status: Current every day smoker Tobacco type: cigarettes Alcohol intake: current Exam Const: General: healthy appearing Nutritional Appearance: well nourished Orientation/consciousness: patient oriented x3 Limitations: no limitations HENMT: Head: normal to inspection Ears: external ears normal Face/Nose/Sinus: Normal external nose present Eyes: Conjunctivae: conjunctivae normal Pupils: Equal, round and reactive pupils present EOM: EOMs intact bilaterally Neck: Neck: normal visual inspection Chest: Chest palpation & inspection: normal inspection of the chest Resp: Effort & Inspection: normal respiratory effort and not labored Auscu ltation: clear to auscultation bilaterally and no crackles Cardio: Rate: regular rate Rhythm: abnormal rhythm Heart sounds: no murmurs GI: Inspection: non-distended Auscultation: normal bowel sounds and bowel sounds present : General: Yes bladder normal to palpation Back/Spine/Pelvis: Back: no CVA tenderness Skin: General skin exam: normal color Rashes: no rashes Wounds: no woun ds Neuro: General: patient oriented x3 Cranial nerves: Yes Nystagmus not present Speech: normal speech Extrem: General: normal to inspection Psych: Mental Status: mental status grossly normal Affect: normal affect Attitude: cooperative MDM - Arrhythmia/Palpitations MDM Narrative Medical decision making narrative: patient is a 69-year-old male with known new onset atrial flutter/ fibrillation and elevated BMP and hypertensive urgency. He was started on Toprol-XL as an outpatient today 25 mg. He was given labetalol 3 times of 10 mg in the ER earlier. He had to leave AMA to deal with some issues at home and said he would come back this evening. He is here for the 2nd evaluation and transfer to [facility] for higher level medical care and Cardiology. Lab Data Attestation: I reviewed the patient's lab results. Labs: See initial chart Imaging Data Attestation: I personally reviewed and interpreted this imaging study as follows: Radiologist's impression: see initial chart ECG Data EKG #1: Interpretation: see initial chart for other EKGs EKG Interpretation: tachycardia, atrial fibrillation, atrial flutter, non- specific ST changes, widened QRS, RBBB, normal QT and left axis Discharge Plan Discharge Clinical Impression: Atrial fib/flutter, transient, Asymptomatic hypertensive urgency, Elevated brain natriuretic peptide (BNP) level Patient Disposition: Acute Care Hospital Condition: Improved Patient Language: Korean Prescriptions: No Action metoprolol succinate [Toprol XL] 25 mg tablet extended release 24 hr 25 mg PO DAILY Qty: 30 0RF pantoprazole 40 mg tablet,delayed release (DR/EC) 40 mg PO 4XW azithromycin [Zithromax Z-Usama] 250 mg tablet See Rx Instructions PO .COMPLEX Qty: 6 0RF Rx Instructions: take 500 mg today (day 1), then 250 mg for 4 days (days 2-5) PO lisinopril-hydrochlorothiazide 10-12.5 mg tablet 1 tablet PO DAILY Qty: 30 3RF Airsupra 90-80 mcg/actuation HFA aerosol inhaler 2 inh inhalation ONCE Qty: 5.9 0RF Rx Instructions: *SAMPLE* LOT:[id number] EXP: 03/11/[address] [id number] 1 BOX GIVEN Follow-up/Referrals: Taylor Najera NP [Primary Care Provider] - Time of Disposition: 19:54
--- NOTE | 2024-11-12 16:44 | ECG_ITS ---
Test Date: 2024-11-12 16:56:19 Measurements Intervals [place] Rate: 125 P: 212 VT: 164 QRS: -80 QRSD: 166 T: 76 QT: 328 QTc: 473 Interpretive Statements ATRIAL FLUTTER/TACHYCARDIA WITH RAPID VENTRICULAR RESPONSE RIGHT BUNDLE BRANCH BLOCK LEFT ANTERIOR FASCICULAR BLOCK BASELINE ARTIFACT- I, II, III ABNORMAL ECG Compared to ECG 11/12/2024 10:46:55 NO SIGNIFICANT CHANGE Electronically Signed On 11-12-2024 17:23:40 CDT by Dwight Olmedo D.O.
[2024-11-12 17:22] LABS: Troponin I 27.8 ng/L (0.00-60.4)
--- NOTE | 2024-11-12 19:19 | PC.NURSE ---
Pt sitting bedside, Noted BP and ERP aware of BP. Pt informed on Rm at [facility] and will transfer soon. Continuing to monitor.
--- NOTE | 2024-11-12 19:22 | PC.NURSE ---
REPORT GIVEN TO B[employer]ER RN
--- NOTE | 2024-11-12 19:40 | PC.NURSE ---
Child playing in room w/ foster dad at this time, wanting to know when he will get to leave. Explained to child and international marketing executive that [facility] team is coming to get pt w/ their ambulance truck. Child has c-collar in place. Advised child and foster dad that pt needs to remain in bed and not sitting up and playing. Awaiting transfer team.
--- NOTE | 2024-11-14 14:54 | PC.NURSE ---
preliminary blood cultures x2 reviewed. no growth to date
== END 2024-11-12 20:17 | disposition short-term general hospital (02) ==
PROVIDERS: Emergency Provider Emergency Medicine; PCP Nurse Practitioner Family
DX: I48.91 Unspecified atrial fibrillation (principal); I16.0 Hypertensive urgency; R79.89 Other specified abnormal findings of blood chemistry; I45.10 Unspecified right bundle-branch block; F17.210 Nicotine dependence, cigarettes, uncomplicated
CPT/HCPCS: 36415; 84484; 93005; 99285

== ENCOUNTER 2024-11-13 07:44 | Observation (INO) | payer MEDICARE, SELFPAY ==
[2024-11-12 21:09] VITALS: BP 149/106; PULSE 125; RESP 18; TEMP 36.4; O2SAT 99; BMI 32.8
--- NOTE | 2024-11-12 21:20 | P.HP_ITS ---
H&P: HPI History of Present Illness Date/Time: 11/12/24 21:20 Chief Complaint: Abnormal EKG Narrative: 69-year-old male history of smoker, hypertension GERD presents the hospital with abnormal EKG. On 11/10/2024 the patient reestablished services with his PCP. He was found have hypertension and tachycardia. His PCP had ordered outpatient echocardiogram which showed a flutter at a rate of 128 he was called by his PCP and recommended to go to the hospital. Which he did. Patient has no complaints at this time. In the ED patient was found to be hemoconcentrated at 15.7, D-dimer of 0.84, total bili of 1.1, proBNP of 5841, influenza A/B, RSV and COVID negative. CTA shows no evidence of pulmonary embolism, it does show a small right pleural effusion with minimal left pleural effusion and minor interstitial edema. X-ray shows Interval improvement in normal left basilar atelectasis versus pneumonia. Of note patient did leave AMA from the ED however he picked up his prescription from the pharmacy that was prescribed to him. Got his set up for the night and came right back to the emergency room. He was not being medically noncompliant, he was just putting his 's health before his. Review of Systems Review of Systems: 12 systems were reviewed and are negativ e except for as per HPI. [facility] Past Medical History Medical History Umbilical hernia (10/31/14) Hypertension (05/07/13) Tobacco abuse Surgical History Surgical History History of hernia repair Family History Family History Father CHF (congestive heart failure) Heart disease Pacemaker Mother Degenerative disc disease Social History Social History Smoking packs per day: 1.5 Smoking cigarettes per day: 30.0 Years smoked: 50 Smoking pack-years: 75.00 Smoking status: Current every day smoker Tobacco type: cigarettes Alcohol intake: current Drinks per week: 28 Substance use: never Do You Feel Safe in your Home?: Yes Lack of Transportation: YES Lack of Food: Never True Current Housing: I Have Housing Concerned About Future Housing: No Difficulty Paying Gas/Electric Bills: No Difficulty Paying for Meds: No Currently Unemployed: No Education: Decline to Answer Difficulty w/ Childcare or Family Care: No Spiritual care concerns: No Meds Home Medications and Allergies Home Medications ?Medication ?Instructions ?Recorded ?Confirmed ?Type azithromycin 250 mg tablet See Rx Instructions PO .COMPLEX #6 11/10/24 11/12/24 Rx (Zithromax Z-Usama) tabs lisinopril 10 1 tablet PO DAILY #30 tabs 11/10/24 11/12/24 Rx mg-hydrochlorothiazide 12.5 mg tablet albuterol 90 mcg-budesonide 80 2 inh inhalation ONCE #5.9 grams 11/11/24 11/12/24 Rx mcg/actuation HFA aerosol inhaler (Airsupra) metoprolol succinate 25 mg 25 mg PO DAILY #30 tabs 11/12/24 11/12/24 Rx tablet,extended release 24 hr (Toprol XL) omeprazole 20 mg capsule,delayed 40 mg PO DAILY 11/12/24 11/12/24 History release Allergies Allergy/AdvReac Type Severity Reaction Status Date / Time No Known Allergies Allergy Verified 11/12/24 16:36 Exam Narrative: General: well appearing, appears older than stated age. HEENT: normocephalic, atraumatic. Mucous membranes moist. EOMI, PERRLA, bilateral sclera anicteric, no conjunctival injection. Neck supple without JVD, lymphadenopathy, or bruit. Respiratory: clear to ascultation bilaterally. No rales/rhonic/wheezes. Cardiovascular: Regular rate and rhythm, normal S1-S2 upon ascultation. No murmurs, rubs, or clicks. PMI is nondisplaced, capillary refill less than 3 second. Abdomen: Soft, round, no pulsatile masses, nondistended and nontender. No rebound, no guarding. No CVA tenderness, no hepatosplenomegaly. Bowel sounds present to all four quadrants. No high pitch or tinkling sounds, resonant to percussion. Extremities: No cyanosis, clubbing, Pulses are palpable 2/2. Active ROM to all four extremities. Pedal edema Neuro: Alert and orientated x 4. PERRLA. Cranial nerves 2-12 intact without focal deficit. Skin: Warm, dry, and intact, without rash, erythema, or lesion. Psych: pleasant, cooperative, normal speech, normal affect, no hallucinations, no dysarthia Assessment and Plan Assessment and plan (1) Atrial fib/flutter, transient: Code(s): I48.91 - Unspecified atrial fibrillation; I48.92 - Unspecified atrial flutter Status: Acute Assessment and Plan: Cardiology consulted Metoprolol ordered Lovenox (2) Elevated brain natriuretic peptide (BNP) level: Code(s): R79.89 - Other specified abnormal findings of blood chemistry Status: Acute Assessment and Plan: No history of CHF Cardiology consulted Echocardiogram Lungs are clear will defer Lasix at this time (3) HTN (hypertension): Code(s): I10 - Essential (primary) hypertension Status: Acute Assessment and Plan: Continue hydrochlorothiazide and lisinopril (4) GERD (gastroesophageal reflux disease): Code(s): K21.9 - Gastro-esophageal reflux disease without esophagitis Status: Acute Assessment and Plan: Continue Protonix L (5) Tobacco abuse: Code(s): Z72.0 - Tobacco use Status: Acute Assessment and Plan: Nicotine patch Patient counseled Quality VTE Prophylaxis VTE prophylaxis: mechanical ordered and pharmacologic ordered Hospitalist MIPS Advance Care Plan I have confirmed that the patient's Advanced Care Plan is present, code status is documented, or surrogate decision maker is listed in patient medical record.: Yes Medication Reconciliation I have utilized all available resources to obtain, update and review the patients current medications (includes all prescriptions, OTC, herbals, cannabis, and nutritional supplements).: Yes
--- NOTE | 2024-11-12 21:25 | PC.NURSE ---
This patient, Austin Morgan, was admitted to IMU Room 211-01. Patient/family oriented to hospital policies and general routines including ID bracelet, bed and alarms, visiting hours, pain management, procedures, bathroom and other care routines, personal items, smoking policy, room service/diet, and visiting hours. Information on how to activate the Rapid Response Team has been discussed. Patient/Family are encouraged to report perceived risks to care and to ask questions if they do not understand what they are told or what they should do.
[2024-11-12 22:00] VITALS: PULSE 124
[2024-11-12 23:24] VITALS: BP 115/86; PULSE 122; RESP 16; TEMP 36.7; O2SAT 99
[2024-11-12 23:50] VITALS: PULSE 122
[2024-11-12] MEDS: METOPROLOL TARTRATE 25 MG TABLET PO (23:50)
[2024-11-13] VITALS (19 sets, daily range): BP systolic 115–148; BP diastolic 76–110; PULSE 82–127; RESP 14–20; TEMP 36.4–37.2; O2SAT 94–100
--- NOTE | 2024-11-13 04:36 | ECG_ITS ---
Test Date: 2024-11-13 04:56:52 Measurements Intervals [place] Rate: 103 P: 0 MA: 0 QRS: -70 QRSD: 175 T: 180 QT: 389 QTc: 512 Interpretive Statements ATRIAL FLUTTER/TACHYCARDIA WITH RAPID VENTRICULAR RESPONSE RIGHT BUNDLE BRANCH BLOCK LEFT ANTERIOR FASCICULAR BLOCK [QRS AXIS <= -45, QR IN I, RS IN II] MODERATE T-WAVE ABNORMALITY, CONSIDER ANTEROLATERAL ISCHEMIA ABNORMAL ECG Compared to ECG 11/12/2024 16:56:19 HEART RATE HAS DECREASED Electronically Signed On 11-13-2024 07:22:20 CDT by Dwight Olmedo D.O.
[2024-11-13 04:53] LABS: Basophils Absolute Auto 0.1 K/mm3 (0.0-0.1); Basophils Percent Auto 1.4 % (0.2-1.2); Eosinophils Absolute Auto 0.3 K/mm3 (0-0.3); Eosinophils Percent Auto 4.2 % (0-4.4); Hematocrit 44.9 % (42.0-52.0); Hemoglobin 15.3 g/dL (14.0-18.0); Immature Granulocyte Absolute 0.03 K/mm3 (0.00-0.031); Immature Granulocyte Percent A 0.4 % (0-0.5); Lymphocytes Percent Auto 25.2 % (18.3-44.2); Mean Corpuscular HGB Conc 34.1 g/dl (32-36); Mean Corpuscular Hemoglobin 33.7 pg (26-34); Mean Corpuscular Volume 98.9 fl (80-100); Mean Platelet Volume 11.3 fl (7.4-10.4); Monocytes Absolute Auto 0.6 K/mm3 (0.1-0.6); Neutrophils Absolute Auto 4.3 K/mm3 (1.3-6.7); Neutrophils Percent Auto 59.8 % (45.5-73.1); Platelet Count Result 171 k/mm3 (150-375); Red Blood Count 4.54 M/mm3 (4.6-6.20); Red Cell Distribution Width 13.2 % (11.5-14.5); White Blood Count 7.2 K/mm3 (4.5-10.0)
[2024-11-13 05:00] LABS: Anion Gap 9 mmol/L (4-12); Blood Urea Nitrogen 14 mg/dL (9-20); Carbon Dioxide 26 mmol/L (22-30); Chloride 104 mmol/L (98-107); Estimated CRCL calculation 74 ml/min; Estimated Glomerular Filt Rate > 60; Glucose 101 mg/dL (65-110); Potassium 3.6 mmol/L (3.4-5.0); Sodium 139 mmol/L (137-145)
[2024-11-13] MEDS: METOPROLOL TARTRATE INJ 5 MG/5 ML VIAL 2.5 MG IV PUSH (05:01)
[2024-11-13 05:12] LABS: Troponin I 0.018 ng/mL (0.000-0.034)
[2024-11-13] MEDS: NICOTINE (*PBKC) 21 MG PATCH 1 PATCH TRANSDERM (06:41)
--- NOTE | 2024-11-13 08:24 | P.PNIM_ITS ---
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% Cardiology consulted will start lasix continue metoprolol, lisinopril will add statin willl check lipid profile, a1c and tsh follow cardiology recs (3) HTN (hypertension): Code(s): I10 - Essential (primary) hypertension Status: Acute Assessment and Plan: Continue hydrochlorothiazide and lisinopril (4) GERD (gastroesophageal reflux disease): Code(s): K21.9 - Gastro-esophageal reflux disease without esophagitis Status: Acute Assessment and Plan: Continue Protonix (5) Tobacco abuse: Code(s): Z72.0 - Tobacco use Status: Acute Assessment and Plan: Nicotine patch Patient counseled Subjective Date/time seen: 11/13/24 08:24 Interval history: per HPI: 69-year-old male history of smoker, hypertension GERD presents the hospital with abnormal EKG. On 11/10/2024 the patient reestablished services with his PCP. He was found have hypertension and tachycardia. His PCP had ordered outpatient echocardiogram which showed a flutter at a rate of 128 he was called by his PCP and recommended to go to the hospital. Which he did. Patient has no complaints at this time. In the ED patient was found to be hemoconcentrated at 15.7, D-dimer of 0.84, total bili of 1.1, proBNP of 5841, influenza A/B, RSV and COVID negative. CTA shows no evidence of pulmonary embolism, it does show a small right pleural effusion with minimal left pleural effusion and minor interstitial edema. X-ray shows Interval improvement in normal left basilar atelectasis versus pneumonia. Of note patient did leave AMA from the ED however he picked up his prescription from the pharmacy that was prescribed to him. Got his set up for the night and came right back to the emergency room. He was not being medically noncompliant, he was just putting his 's health before his. 11/13/24 Patient was seen and examined at bedside. WBC 7.2, hemoglobin 15.3 sodium 139, potassium 3.6, creatinine 1.07, proBNP 5841, troponin negative. Continue with lisinopril, metoprolol, HCTZ Echo showed LVEF 20 to 25% Cardiology recommended metoprolol and Eliquis Continue with PPI, nicotine patch Review of Systems Review of Systems: 12 systems were reviewed and are negativ e except for as per HPI. Exam Narrative: General: well appearing, appears older than stated age. HEENT: normocephalic, atraumatic. Mucous membranes moist. EOMI, PERRLA, bilateral sclera anicteric, no conjunctival injection. Neck supple without JVD, lymphadenopathy, or bruit. Respiratory: clear to ascultation bilaterally. No rales/rhonic/wheezes. Cardiovascular: Regular rate and rhythm, normal S1-S2 upon ascultation. No murmurs, rubs, or clicks. PMI is nondisplaced, capillary refill less than 3 second. Abdomen: Soft, round, no pulsatile masses, nondistended and nontender. No rebound, no guarding. No CVA tenderness, no hepatosplenomegaly. Bowel sounds present to all four quadrants. No high pitch or tinkling sounds, resonant to percussion. Extremities: No cyanosis, clubbing, Pulses are palpable 2/2. Active ROM to all four extremities. 2+ Pedal edema Neuro: Alert and orientated x 4. PERRLA. Cranial nerves 2-12 intact without focal deficit. Skin: Warm, dry, and intact, without rash, erythema, or lesion. Psych: pleasant, cooperative, normal speech, normal affect, no hallucinations, no dysarthia Objective Data Vital Signs Vital Signs: Vital Signs - 24 hr 11/12/24 21:09 11/12/24 21:09 11/12/24 21:15 Temperature 97.5 F L Pulse Rate 125 H 125 H Respiratory Rate 18 Blood Pressure 149/106 H Pulse Oximetry 99 Oxygen Delivery Room Air 11/12/24 22:00 11/12/24 23:24 11/12/24 23:50 Temperature 98.1 F Pulse Rate 124 H 122 H 122 H Respiratory Rate 16 Blood Pressure 115/86 Pulse Oximetry 99 Oxygen Delivery 11/12/24 23:53 11/13/24 00:00 11/13/24 02:00 Temperature Pulse Rate 112 H 113 H Respiratory Rate Blood Pressure Pulse Oximetry Oxygen Delivery Room Air 11/13/24 04:00 11/13/24 04:00 11/13/24 04:10 Temperature 97.7 F Pulse Rate 123 H 112 H Respiratory Rate 18 Blood Pressure 115/76 Pulse Oximetry 94 Oxygen Delivery Room Air 11/13/24 05:01 11/13/24 05:52 11/13/24 07:56 Temperature 98.6 F Pulse Rate 123 H 92 122 H Respiratory Rate 20 Blood Pressure 144/108 H Pulse Oximetry 98 Oxygen Delivery Intake/Output Intake/Output: Intake & Output 11/10/24 11/11/24 11/12/24 11/13/24 23:59 23:59 23:59 23:59 Intake Total 400 Output Total 575 Balance -175 Meds/Results Medications: Active Medications Generic Name Dose Route Start Last Admin Trade Name Freq PRN Reason Stop Dose Admin Acetaminophen 650 mg 11/12/24 21:33 Acetaminophen 325 Mg Tablet PO Q4H PRN Mild Pain (1-3) or Fever Enoxaparin Sodium 40 mg 11/13/24 09:00 Enoxaparin 40 Mg/0.4 Ml Syringe SUB-Q DAILY [facility] Hydrochlorothiazide 12.5 mg 11/13/24 09:00 Hydrochlorothiazide 12.5 Mg Capsule PO DAILY [facility] Lisinopril 10 mg 11/13/24 09:00 Lisinopril 10 Mg Tablet PO DAILY [facility] Metoprolol Succinate 25 mg 11/13/24 09:00 Metoprolol Succinate Ext Rel 25 Mg Tabcr PO DAILY [facility] Nicotine 1 patch 11/13/24 09:00 11/13/24 06:41 Nicotine (*Pbkc) 21 Mg Patch TRANSDERM 1 patch DAILY [facility] Administration Nicotine Polacrilex 2 mg 11/13/24 00:54 Nicotine (*Pbkc) 2 Mg Gum PO PRN PRN Nicotine Cravings Pantoprazole Sodium 40 mg 11/13/24 09:00 Pantoprazole 40 Mg Tablet PO DAILY [facility] Perflutren Lipid Microsphere 0 ml 11/12/24 21:33 Perflutren Lipid Microspheres 1.5 Ml Vial Diluted To 10 Ml Total Volume IV PUSH 11/15/24 21:34 ONCE PRN adequate visualization Protocol Labs Labs: Laboratory Results - last 24 hr 11/13/24 04:43 WBC 7.2 RBC 4.54 L Hgb 15.3 Hct 44.9 MCV 98.9 MCH 33.7 MCHC 34.1 RDW 13.2 Plt Count 171 MPV 11.3 H Immature Gran % (Auto) 0.4 Neut % (Auto) 59.8 Lymph % (Auto) 25.2 [place] % (Auto) 9.0 H Eos % (Auto) 4.2 Baso % (Auto) 1.4 H Lymph # (Auto) 1.80 [place] # (Auto) 0.6 Eos # (Auto) 0.3 Baso # (Auto) 0.1 Abs Immat Gran (auto) 0.03 Absolute Neuts (auto) 4.3 Absolute Nucleated RBC 0.000 Nucleated RBC % 0.0 Sodium 139 Potassium 3.6 Chloride 104 Carbon Dioxide 26 Anion Gap 9 BUN 14 Creatinine 1.07 Estim Creat Clear Calc 74 Estimated GFR > 60 Glucose 101 Calcium 9.0 Troponin I 0.018 Quality VTE Prophylaxis VTE prophylaxis: mechanical ordered and pharmacologic ordered
--- NOTE | 2024-11-13 10:51 | PM.CNCAR ---
Assessment and Plan Assessment and plan (1) Atrial flutter: Code(s): I48.92 - Unspecified atrial flutter Status: Acute Plan 69-year-old man with history of untreated hypertension and chronic cigarette smoking/tobacco abuse presenting with shortness of breath and atrial flutter with rapid ventricular response. The onset of his arrhythmia is unknown but by his history sounds like at least for 2-3 weeks. He will be a candidate at this time for rate control and anticoagulation. Because of the subacute onset of his arrhythmia we will try to avoid cardioverting him during this admission. I am going to advance the dose of his metoprolol and start him on apixaban at this time. We will review his echocardiogram and follow-up while he is in the hospital. Hopefully his heart rate will come under good control with metoprolol and he can be discharged fairly soon. His principal concern is to be home and provide care for his debilitated . Honorio Huffman MD [facility] History of Present Illness History of Present Illness Consult date/time: 11/13/24 10:51 Reason For Visit: Proximal A-Fib; Hypertensive urgency resolved; Narrative: This is a 69-year-old man I am seeing at the request of the hospitalist because of atrial flutter. He has no prior history of cardiac problems and I have not seen him prior to this consultation today. He went to see his primary care physician several days ago because of symptoms of shortness of breath which began about 2-3 weeks ago. He states that he noticed with modest activity are routine activity about the house he was having the sense of air hunger and having to stop to rest. He was not having any orthopnea or or PND. He does have some bilateral lower extremity edema which has not worsened recently to the best of his ability to discern. He was not aware of the sense of palpitations or chest pain. When he went to see his physician the note indicates he had been seen in the office for about 3 years. He was therefore not taking any maintenance medication for anything. He was previously prescribed lisinopril for hypertension. He also has a history of smoking a pack per day for 50 years. He was found to be tachycardic in the office and his ECG demonstrated atrial flutter with two-to-one conduction. Evaluation in emergency room and admission were recommended but the patient had to go home and take care of his who is debilitated. After he made arrangements at home he came to the emergency room he was transferred here and admitted last night. His EKG shows atrial flutter with bifascicular block and in this setting I am seeing him in consultation. An echocardiogram was just done a short time ago the results of that are obviously not available as I dictate this note. He appears to be in no distress when I entered the room to see him. Review of Systems Constitutional: Constitutional: Reports lethargy Eyes: Eyes: Reports no additional eye complaints ENT: Reports system reviewed and no additional complaints, except as documented Cardiovascular: Cardiovascular: Reports no additional cardiovascular complaints Respiratory: Respiratory: Reports dyspnea on exertion Gastrointestinal: Gastrointestinal: Reports no additional gastrointestinal complaints Musculoskeletal: Musculoskeletal: Reports back pain Integumentary/Breasts: Skin/Breast: Reports system reviewed and no additional complaints, except as docu Neurologic: Reports system reviewed and no additional complaints, except as documented Endocrine: Endocrine: Reports no additional endocrine complaints Hematologic/Lymphatic: Hematologic/Lymphatic: Reports no additional hematologic/lymphatic complaints [facility] Past Medical History Medical History Umbilical hernia (10/31/14) Hypertension (05/07/13) Tobacco abuse Surgical History Surgical History History of hernia repair Family History Family History Father CHF (congestive heart failure) Heart disease Pacemaker Mother Degenerative disc disease Social History Social History Smoking packs per day: 1.5 Smoking cigarettes per day: 30.0 Years smoked: 50 Smoking pack-years: 75.00 Smoking status: Current every day smoker Tobacco type: cigarettes Alcohol intake: current Drinks per week: 28 Substance use: never Do You Feel Safe in your Home?: Yes Lack of Transportation: YES Lack of Food: Never True Current Housing: I Have Housing Concerned About Future Housing: No Difficulty Paying Gas/Electric Bills: No Difficulty Paying for Meds: No Currently Unemployed: No Education: Decline to Answer Difficulty w/ Childcare or Family Care: No Spiritual care concerns: No Meds Home Medications and Allergies Home Medications ?Medication ?Instructions ?Recorded ?Confirmed ?Type azithromycin 250 mg tablet See Rx Instructions PO .COMPLEX #6 11/10/24 11/12/24 Rx (Zithromax Z-Usama) tabs lisinopril 10 1 tablet PO DAILY #30 tabs 11/10/24 11/12/24 Rx mg-hydrochlorothiazide 12.5 mg tablet albuterol 90 mcg-budesonide 80 2 inh inhalation ONCE #5.9 grams 11/11/24 11/12/24 Rx mcg/actuation HFA aerosol inhaler (Airsupra) metoprolol succinate 25 mg 25 mg PO DAILY #30 tabs 11/12/24 11/12/24 Rx tablet,extended release 24 hr (Toprol XL) omeprazole 20 mg capsule,delayed 40 mg PO DAILY 11/12/24 11/12/24 History release Allergies Allergy/AdvReac Type Severity Reaction Status Date / Time No Known Allergies Allergy Verified 11/12/24 16:36 Vital Signs Vital Signs - 24 hr 11/12/24 21:09 11/12/24 21:09 11/12/24 21:15 Temperature 36.4 C L Pulse Rate 125 H 125 H Respiratory Rate 18 Blood Pressure 149/106 H Pulse Oximetry 99 Oxygen Delivery Room Air 11/12/24 22:00 11/12/24 23:24 11/12/24 23:50 Temperature 36.7 C Pulse Rate 124 H 122 H 122 H Respiratory Rate 16 Blood Pressure 115/86 Pulse Oximetry 99 Oxygen Delivery 11/12/24 23:53 11/13/24 00:00 11/13/24 02:00 Temperature Pulse Rate 112 H 113 H Respiratory Rate Blood Pressure Pulse Oximetry Oxygen Delivery Room Air 11/13/24 04:00 11/13/24 04:00 11/13/24 04:10 Temperature 36.5 C Pulse Rate 123 H 112 H Respiratory Rate 18 Blood Pressure 115/76 Pulse Oximetry 94 Oxygen Delivery Room Air 11/13/24 05:01 11/13/24 05:52 11/13/24 07:56 Temperature 37.0 C Pulse Rate 123 H 92 122 H Respiratory Rate 20 Blood Pressure 144/108 H Pulse Oximetry 98 Oxygen Delivery Exam Const: General: comfortable and no acute distress Other: Pleasant overweight man no distress of any kind HENMT: Mouth: Yes moist mucous membranes Eyes: Sclera: sclerae normal Neck: Neck: supple Other: No carotid bruits, JVD difficult to discern Resp: Effort & Inspection: normal respiratory effort Auscultation: clear to auscultation bilaterally Other: Breath sounds are distant but otherwise clear Cardio: Rate: regular rate and tachycardic Other: No murmur no gallop GI: GI Palp: Yes Soft to palpation Auscultation: normal bowel sounds Skin: General skin exam: normal color Neuro: Other: Normal cognition alert and oriented x3 Extrem: Other: Good perfusion, mild bilateral symmetrical pitting edema Results Labs and Meds 11/13/24 04:43 11/13/24 04:43 Lab results: Cardiac Enzymes 11/13/24 Range/Units 04:43 Troponin I 0.018 (0.000-0.034) ng/mL CBC 11/13/24 Range/Units 04:43 WBC 7.2 (4.5-10.0) K/mm3 RBC 4.54 L (4.6-6.20) M/mm3 Hgb 15.3 (14.0-18.0) g/dL Hct 44.9 (42.0-52.0) % Plt Count 171 (150-375) k/mm3 Lymph # (Auto) 1.80 (0.9-3.2) K/mm3 [place] # (Auto) 0.6 (0.1-0.6) K/mm3 Eos # (Auto) 0.3 (0-0.3) K/mm3 Baso # (Auto) 0.1 (0.0-0.1) K/mm3 Comprehensive Metabolic Panel 11/13/24 Range/Units 04:43 Sodium 139 (137-145) mmol/L Potassium 3.6 (3.4-5.0) mmol/L Chloride 104 (98-107) mmol/L Carbon Dioxide 26 (22-30) mmol/L BUN 14 (9-20) mg/dL Creatinine 1.07 (0.7-1.3) mg/dL Glucose 101 (65-110) mg/dL Calcium 9.0 (8.4-10.2) mg/dL Intake and Output 11/12/24 11/13/24 11/13/24 23:59 07:59 15:59 Intake Total 400 240 Output Total 575 Balance -175 240 Intake: Oral 400 240 Output: Urine 575 Patient Weight 11/13/24 23:59 Weight 112.3 kg
[2024-11-13] MEDS: METOPROLOL SUCCINATE EXT REL 100 MG TABCR PO (11:49)
[2024-11-13] MEDS: lisinopriL 10 MG TABLET PO (11:50)
[2024-11-13] MEDS: PANTOPRAZOLE 40 MG TABLET PO (11:50)
[2024-11-13] MEDS: hydroCHLOROthiazide 12.5 MG CAPSULE PO (11:50)
[2024-11-13] MEDS: APIXABAN 5 MG TABLET PO ×2 (11:51→21:44)
--- NOTE | 2024-11-13 14:45 | PC.NURSE ---
HR sustained in the 120s. Updated Dr. Huffman. Reports he is aware and will evaluate pts HR tomorrow after being on metoprolol succ for 24 hours. No new orders at this time.
[2024-11-13 15:15] LABS: Hemoglobin A1C 5.4 % (<5.7)
[2024-11-13] MEDS: FUROSEMIDE INJ 40 MG/4 ML VIAL IV PUSH (15:27)
[2024-11-13 15:32] LABS: Cholesterol 139 mg/dL (0-200); HDL Direct 39 mg/dL; Triglycerides 88 mg/dL (<150)
[2024-11-13 15:43] LABS: LDL Cholesterol Direct 82 mg/dL
--- NOTE | 2024-11-13 21:34 | ECHO_ITS ---
Patient Info Name: Austin Morgan Age: 69 years : 1955 Gender: Male Ht: 73 in Wt: 248 lbs BSA: 2.44 m2 HR: 122 bpm BP: 115 / 76 mmHg Heart Rhythm: Atrial Fibrillation Technical Quality: Fair Exam Date: 11/13/2024 9:39 AM Exam Location: Echo Lab Patient Status: Inpatient Admit Date: 11/12/2024 Staff Ordering Physician: Mile Farah APRN Glaucoma Specialist: Kat Smith RDCS Attending Provider: Terry Felix MD Referring Physician: Sofi COHEN; Exam Type: CA echo doppler color flow Study Info Indications - Elevated BNP Complete two-dimensional, color flow and Doppler transthoracic echocardiogram is performed. Summary 1. Complete two-dimensional, color flow and Doppler transthoracic echocardiogram is performed. 2. Four-chamber dilated cardiomyopathy. 3. SeverelyDepressed left ventricular systolic function. 4. Trivial mitral regurgitation. 5. Atrial flutter. Left Ventricle Left ventricular chamber dimension is mildly enlarged. Left ventricular systolic function is severely reduced, estimated at 20-25%. There is mild concentric increased left ventricular wall thickness. Right Ventricle Right ventricular chamber dimension is mildly enlarged. Right ventricular systolic function is reduced. Left Atria Left atrial chamber dimension is moderately enlarged. Right Atria Right atrial chamber dimension is moderately enlarged. Aortic Valve The aortic valve is trileaflet. There is mild aortic valve sclerosis. Pulmonic Valve The pulmonic valve is normal. Mitral Valve The mitral valve has normal leaflets. There is trace mitral valve regurgitation. Tricuspid Valve The tricuspid valve leaflets are normal. There is mild tricuspid valve regurgitation. Pericardium/Pleural The pericardium appears normal. Aorta The aortic root size at the sinus of Valsalva is normal. Left Ventricular Outflow Tract Name Value Normal LVOT 2D LVOT Diameter 2.2 cm LVOT Doppler LVOT Peak Gradient 2 mmHg LVOT Mean Gradient 1 mmHg LVOT VTI 10 cm LVOT VTI/AV VTI Ratio 0.9 LVOT Stroke Volume 40 ml LVOT CO 4.7 l/min LVOT CI 1.9 l/min/m2 Pulmonic Valve Name Value Normal RVOT Doppler RVOT Peak Gradient 1 mmHg PV Doppler PV Peak Gradient 1 mmHg Mitral Valve Name Value Normal MV Doppler MV Decel Nicholas 666 cm/s2 MV PHT 36 ms MV Area (PHT) 6.1 cm2 4.0-5.0 MV Diastolic Function MV E Peak Velocity 83 cm/s MV A Peak Velocity 2 cm/s MV E/A 35.9 MV Decel Time 125 ms MV Annular TDI MV E/e' (Septal) 32.9 <=8.0 MV E/e' (Lateral) 11.8 <=8.0 MV E/e' (Average) 22.3 Tricuspid Valve Name Value Normal TV Regurgitation Doppler TR Peak Velocity 306 cm/s TR Peak Gradient 37 mmHg Aortic Valve Name Value Normal AV Doppler AV Peak Velocity 84 cm/s AV Peak Gradient 3 mmHg AV Mean Gradient 2 mmHg AV VTI 12 cm AV Area (Cont Eq VTI) 3.4 cm2 >=3.0 AV Regurgitation 2D LVOT Area 3.9 cm2 Ventricles Name Value Normal LV Dimensions 2D/MM IVS Diastolic Thickness (2D) 1.2 cm 0.6-1.0 LVID Diastole (2D) 5.4 cm 4.2-5.8 LVIW Diastolic Thickness (2D) 1.2 cm 0.6-1.0 LVID Systole (2D) 4.3 cm 2.5-4.0 LVOT Diameter 2.2 cm LV Mass (2D Cubed) 275.02 g 88.00-224.00 LV Mass Index (2D Cubed) 113 g/m2 49-115 Relative Wall Thickness (2D) 0.46 LV Fractional Shortening/Ejection Fraction 2D/MM LV Fractional Shortening (2D) 20 % 25-43 LV EF (2D Teicholz) 41 % 52-72 LV Diastolic Volume (4C MOD) 216 ml LV EF (4C MOD) 36 % LV Diastolic Volume (2C MOD) 210 ml LV EF (2C MOD) 39 % LV Diastolic Volume (BP MOD) 215 ml 62-150 LV Diastolic Volume Index (BP MOD) 88 ml/m2 34-74 LV Systolic Volume (BP MOD) 134 ml 21-61 LV Systolic Volume Index (BP MOD) 55 ml/m2 11-31 LV EF (BP MOD) 37 % 52-72 LV Diastolic Length (4C) 10.5 cm LV Systolic Length (4C) 9.6 cm LV Stroke Volume (4C MOD) 77 ml Atria Name Value Normal LA Dimensions LA Volume (4C A-L) 82 ml LA Volume (BP A-L) 119 ml RA Dimensions RA Area (4C) 27.2 cm2 <=18.0 Report Signatures
[2024-11-14] VITALS (7 sets, daily range): BP systolic 130–137; BP diastolic 99; PULSE 105–123; RESP 16–18; TEMP 36.6–36.9; O2SAT 96–100
[2024-11-14 01:21] LABS: Hemoglobin 15.2 g/dL (14.0-18.0); Mean Corpuscular HGB Conc 33.8 g/dl (32-36); Mean Corpuscular Hemoglobin 33.6 pg (26-34); Mean Corpuscular Volume 99.3 fl (80-100); Mean Platelet Volume 11.2 fl (7.4-10.4); Platelet Count Result 159 k/mm3 (150-375); Red Blood Count 4.53 M/mm3 (4.6-6.20); Red Cell Distribution Width 13.2 % (11.5-14.5); White Blood Count 7.2 K/mm3 (4.5-10.0)
[2024-11-14 01:34] LABS: Anion Gap 9 mmol/L (4-12); Blood Urea Nitrogen 17 mg/dL (9-20); Calcium 8.9 mg/dL (8.4-10.2); Carbon Dioxide 28 mmol/L (22-30); Chloride 104 mmol/L (98-107); Estimated CRCL calculation 67 ml/min; Estimated Glomerular Filt Rate 60; Glucose 137 mg/dL (65-110); Magnesium 2.2 mg/dL (1.6-2.3); Potassium 3.3 mmol/L (3.4-5.0); Sodium 141 mmol/L (137-145)
[2024-11-14] MEDS: POTASSIUM CHLORIDE 20 MEQ PACKET (FOR LIQUID) 40 MEQ PO (02:05)
[2024-11-14] MEDS: METOPROLOL SUCCINATE EXT REL 100 MG TABCR PO (08:41)
[2024-11-14] MEDS: PANTOPRAZOLE 40 MG TABLET PO (08:42)
[2024-11-14] MEDS: hydroCHLOROthiazide 12.5 MG CAPSULE PO (08:42)
[2024-11-14] MEDS: ATORVASTATIN 40 MG TABLET 80 MG PO (08:44)
[2024-11-14] MEDS: APIXABAN 5 MG TABLET PO (08:48)
[2024-11-14] MEDS: lisinopriL 10 MG TABLET PO (08:48)
[2024-11-14] MEDS: NICOTINE (*PBKC) 21 MG PATCH 1 PATCH TRANSDERM (08:49)
--- NOTE | 2024-11-14 12:39 | P.DS_ITS ---
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% Cardiology consulted started lasix continue metoprolol, lisinopril added statin follow cardiology recs (3) HTN (hypertension): Code(s): I10 - Essential (primary) hypertension Status: Acute Assessment and Plan: Continue hydrochlorothiazide and lisinopril (4) GERD (gastroesophageal reflux disease): Code(s): K21.9 - Gastro-esophageal reflux disease without esophagitis Status: Acute Assessment and Plan: Continue Protonix (5) Tobacco abuse: Code(s): Z72.0 - Tobacco use Status: Acute Assessment and Plan: Nicotine patch Patient counseled DS: Summary Hospital Course Hospital Course: per HPI: 69-year-old male history of smoker, hypertension GERD presents the hospital with abnormal EKG. On 11/10/2024 the patient reestablished services with his PCP. He was found have hypertension and tachycardia. His PCP had ordered outpatient echocardiogram which showed a flutter at a rate of 128 he was called by his PCP and recommended to go to the hospital. Which he did. Patient has no complaints at this time. In the ED patient was found to be hemoconcentrated at 15.7, D-dimer of 0.84, total bili of 1.1, proBNP of 5841, influenza A/B, RSV and COVID negative. CTA shows no evidence of pulmonary embolism, it does show a small right pleural effusion with minimal left pleural effusion and minor interstitial edema. X-ray shows Interval improvement in normal left basilar atelectasis versus pneumonia. Of note patient did leave AMA from the ED however he picked up his prescription from the pharmacy that was prescribed to him. Got his set up for the night and came right back to the emergency room. He was not being medically noncompliant, he was just putting his 's health before his. 11/13/24 Patient was seen and examined at bedside. WBC 7.2, hemoglobin 15.3 sodium 139, potassium 3.6, creatinine 1.07, proBNP 5841, troponin negative. Continue with lisinopril, metoprolol, HCTZ Echo showed LVEF 20 to 25% Cardiology recommended metoprolol and Eliquis Continue with PPI, nicotine patch 11/14/24 Patient was seen and examined at bedside. he is feeling fine, denies chest pain, abd pain, nausea and vomiting. herat rate still Afib rvr but under better control. discussed patient about his heart failure and uncontrolled Heart rate. reccomended to stay for 1-2 more days and may need lifevest at time of discharge. He wanted to leave AMA. discussed about risk of leaving AMA including .he understood, but left AMA. Time Spent with Patient Time attestation: Total time spent providing and/or coordinating discharge services: Time spent: Greater than 30 minutes Exam Narrative: General: well appearing, appears older than stated age. HEENT: normocephalic, atraumatic. Mucous membranes moist. EOMI, PERRLA, bilateral sclera anicteric, no conjunctival injection. Neck supple without JVD, lymphadenopathy, or bruit. Respiratory: clear to ascultation bilaterally. No rales/rhonic/wheezes. Cardiovascular: Regular rate and rhythm, normal S1-S2 upon ascultation. No murmurs, rubs, or clicks. PMI is nondisplaced, capillary refill less than 3 second. Abdomen: Soft, round, no pulsatile masses, nondistended and nontender. No rebound, no guarding. No CVA tenderness, no hepatosplenomegaly. Bowel sounds present to all four quadrants. No high pitch or tinkling sounds, resonant to percussion. Extremities: No cyanosis, clubbing, Pulses are palpable 2/2. Active ROM to all four extremities. 2+ Pedal edema Neuro: Alert and orientated x 4. PERRLA. Cranial nerves 2-12 intact without focal deficit. Skin: Warm, dry, and intact, without rash, erythema, or lesion. Psych: pleasant, cooperative, normal speech, normal affect, no hallucinations, no dysarthia DS: Data Data Completed and Pending Labs on day of discharge: Labs from last 24 hours 11/14/24 11/13/24 01:16 04:42 WBC 7.2 RBC 4.53 L Hgb 15.2 Hct 45.0 MCV 99.3 MCH 33.6 MCHC 33.8 RDW 13.2 Plt Count 159 MPV 11.2 H Sodium 141 Potassium 3.3 L Chloride 104 Carbon Dioxide 28 Anion Gap 9 BUN 17 Creatinine 1.19 Estim Creat Clear Calc 67 Estimated GFR 60 Glucose 137 H Hemoglobin A1c 5.4 Calcium 8.9 Magnesium 2.2 Triglycerides 88 Cholesterol 139 LDL Cholesterol Direct 82 HDL Direct 39 TSH (Reflex) 1.990 Discharge Plan Discharge Consulting providers: Honorio Huffman Discharging Clinician: Terry Felix Patient Disposition: Left Against Medical Advice Activity: as tolerated Diet: heart healthy and low sodium Discharge Instructions: follow with pcp and cardiology Mariely fluid restriction, heart healthy diet check weight daily and report to pCP check Blood pressure and heart rate regularly and report to PCP Patient Instructions: Metoprolol (By mouth), Heart Failure (DC), Atrial Flutter (DC), Tachycardia (GEN) Patient Language: Korean Follow-up/Referrals: Honorio Huffman MD [Physician] - Taylor Najera NP [Primary Care Provider] - Discharge Medications: New atorvastatin [Lipitor] 40 mg tablet 40 mg PO DAILY Qty: 30 0RF Eliquis 5 mg tablet 5 mg PO BID Qty: 60 0RF furosemide [Lasix] 40 mg tablet 40 mg PO DAILY Qty: 30 0RF metoprolol succinate 100 mg tablet extended release 24 hr 100 mg PO DAILY Qty: 30 0RF Continued azithromycin [Zithromax Z-Usama] 250 mg tablet See Rx Instructions PO .COMPLEX Qty: 6 0RF Rx Instructions: take 500 mg today (day 1), then 250 mg for 4 days (days 2-5) PO lisinopril-hydrochlorothiazide 10-12.5 mg tablet 1 tablet PO DAILY Qty: 30 3RF Airsupra 90-80 mcg/actuation HFA aerosol inhaler 2 inh inhalation ONCE Qty: 5.9 0RF Rx Instructions: *SAMPLE* LOT:[id number] EXP: 03/11/25 [facility]:[id number] 1 BOX GIVEN omeprazole 20 mg capsule,delayed release(DR/EC) 40 mg PO DAILY Discontinued metoprolol succinate [Toprol XL] 25 mg tablet extended release 24 hr 25 mg PO DAILY Qty: 30 0RF Date of admission: 11/12/24 20:59 Primary Care Provider: Taylor Najera Admitting Provider: Terry Felix Attending physician on admission: Terry Felix Quality VTE Prophylaxis VTE prophylaxis: mechanical ordered and pharmacologic ordered
== END 2024-11-14 10:13 | disposition left against medical advice (07) ==
PROVIDERS: General Practice; Nurse Practitioner Gerontology; Admitting Provider Internal Medicine; PCP Nurse Practitioner Family; Visit Provider Internal Medicine
DX: I48.91 Unspecified atrial fibrillation (principal); I48.92 Unspecified atrial flutter; I11.0 Hypertensive heart disease with heart failure; I50.40 Unspecified combined systolic (congestive) and diastolic (congestive) heart failure; K21.9 Gastro-esophageal reflux disease without esophagitis; F17.210 Nicotine dependence, cigarettes, uncomplicated; Z79.51 Long term (current) use of inhaled steroids; Z79.899 Other long term (current) drug therapy
CPT/HCPCS: 36415; 80048; 80061; 83036; 83735; 84443; 84484; 85025; 85027; 93005; 93306; 96374; A9270; G0378; J1938

== ENCOUNTER 2024-12-24 00:13 | Day surgery (SDC) | payer MEDICARE, SELFPAY ==
[2024-12-23 16:06] VITALS: BMI 31.4
--- NOTE | 2024-12-24 10:00 | ECG_ITS ---
Test Date: 2024-12-24 11:10:52 Measurements Intervals [place] Rate: 64 P: -5 TN: 312 QRS: -57 QRSD: 163 T: 7 QT: 422 QTc: 438 Interpretive Statements SINUS RHYTHM WITH FIRST DEGREE AV BLOCK RIGHT BUNDLE BRANCH BLOCK [120+ ms QRS DURATION, UPRIGHT V1, 40+ ms S IN I/aVL/V4/V5/V6] LEFT ANTERIOR FASCICULAR BLOCK [QRS AXIS <= -45, QR IN I, RS IN II] Compared to ECG 12/24/2024 10:06:13 Sinus rhythm now present First degree AV block now present Atrial flutter no longer present Electronically Signed On 12-24-2024 11:29:10 CDT by Katie Stoll M.D.
[2024-12-24 10:10] VITALS: BP 114/98; PULSE 129; RESP 20; TEMP 36.6; O2SAT 97
[2024-12-24 10:35] LABS: Anion Gap 11 mmol/L (4-12); Blood Urea Nitrogen 17 mg/dL (9-20); Calcium 9.3 mg/dL (8.4-10.2); Carbon Dioxide 23 mmol/L (22-30); Chloride 106 mmol/L (98-107); Estimated CRCL calculation 91 ml/min; Estimated Glomerular Filt Rate > 60; Glucose 112 mg/dL (65-110); Magnesium 2.2 mg/dL (1.6-2.3); Potassium 3.9 mmol/L (3.4-5.0); Sodium 140 mmol/L (137-145)
--- NOTE | 2024-12-24 11:15 | PM.IMHP ---
H&P: HPI History of Present Illness Date/Time: 12/24/24 11:15 Chief Complaint: Atrial flutter with RVR Narrative: Austin presents for outpatient electrical cardioversion for atrial flutter with RVR. He has not missed any doses of his anticoagulation. Review of Systems Review of Systems: All systems reviewed & are unremarkable except as noted in HPI and below (HPI) [facility] Past Medical History Medical History Umbilical hernia (10/31/14) Hypertension (05/07/13) Tobacco abuse Surgical History Surgical History History of hernia repair Family History Family History Father CHF (congestive heart failure) Heart disease Pacemaker Mother Degenerative disc disease Social History Social History Smoking packs per day: 1.5 Smoking cigarettes per day: 30.0 Years smoked: 50 Smoking pack-years: 75.00 Smoking status: Heavy tobacco smoker Tobacco type: cigarettes Alcohol intake: current Drinks per week: 42 Substance use: never Substance use type: does not use Do You Feel Safe in your Home?: Yes Lack of Transportation: YES Lack of Food: Never True Current Housing: I Have Housing Concerned About Future Housing: No Difficulty Paying Gas/Electric Bills: No Difficulty Paying for Meds: No Currently Unemployed: No Education: Decline to Answer Difficulty w/ Childcare or Family Care: No Living arrangements: with family Spiritual care concerns: No Meds Home Medications and Allergies Home Medications Medication Instructions Recorded Confirmed Type albuterol 90 mcg-budesonide 80 2 inh inhalation ONCE #5.9 grams 11/11/24 12/23/24 Rx mcg/actuation HFA aerosol inhaler (Airsupra) atorvastatin 40 mg tablet (Lipitor) 40 mg PO QHS #30 tabs 11/15/24 12/23/24 Rx buspirone 7.5 mg tablet 7.5 mg PO BID PRN anxiety #60 tabs 11/17/24 12/23/24 Rx omeprazole 40 mg capsule,delayed 40 mg PO DAILY #30 caps 11/17/24 12/23/24 Rx release apixaban 5 mg tablet (Eliquis) 5 mg PO BID #60 tabs 12/10/24 12/23/24 Rx empagliflozin 25 mg tablet 25 mg PO QAM #30 tabs 12/10/24 12/23/24 Rx (Jardiance) furosemide 40 mg tablet (Lasix) 40 mg PO QAM #30 tabs 12/10/24 12/23/24 Rx lisinopril 20 mg tablet 20 mg PO DAILY #30 tabs 12/10/24 12/23/24 Rx potassium chloride 10 mEq 10 meq PO DAILY #30 tabs 12/10/24 12/23/24 Rx tablet,extended release (Klor-Con) diazepam 5 mg tablet See Rx Instructions PO BID PRN 12/16/24 12/23/24 Rx anxiety #5 tabs metoprolol succinate 100 mg 150 mg PO DAILY 12/23/24 12/23/24 History tablet,extended release 24 hr Allergies Allergy/AdvReac Type Severity Reaction Status Date / Time No Known Allergies Allergy Verified 12/23/24 16:02 Vital Signs Vital Signs - 24 hr 12/24/24 10:10 Temperature 36.6 C Pulse Rate 129 H Respiratory Rate 20 Blood Pressure 114/98 H Pulse Oximetry 97 Oxygen Delivery Room Air Exam Const: General: comfortable and no acute distress Eyes: General: appearance normal, both eyes and all related structures Resp: Effort & Inspection: normal respiratory effort Cardio: Rate: tachycardic Rhythm: regular rhythm Skin: General skin exam: normal color Neuro: Speech: normal speech Psych: Mental Status: mental status grossly normal Affect: normal affect H&P: Results Labs Labs: [facility] 12/24/24 10:09 Sodium 140 Potassium 3.9 Chloride 106 Carbon Dioxide 23 BUN 17 Creatinine 0.84 Glucose 112 H Calcium 9.3 Assessment and Plan Assessment and plan (1) Atrial flutter: Code(s): I48.92 - Unspecified atrial flutter Status: Acute Plan Proceed with synchronized electrical cardioversion.
--- NOTE | 2024-12-24 11:16 | P.PCNCVR_ITS ---
Cardioversion Cardioversion Date of procedure: 12/24/24 Procedure: Synchronized electrical cardioversion Pre-op diagnosis: Atrial flutter with RVR Post-op diagnosis: Other (Successful cardioversion to sinus rhythm. ) Indications: Atrial flutter with RVR Description of procedure: Written informed consent obtained. Defibrillator pads placed in an anterior- posterior position. Time out performed by RITU Restrepo. Sedation was administered by Dr. Sepulveda (Anesthesiologist). Once patient was adequately sedated, synchronized electrical cardioversion was performed with 1 shock at 250 joules, which successfully restored sinus rhythm. Patient's hemodynamics and respiratory status was monitored throughout the procedure. No periprocedural complications. Sedation: Sedation was administered by Dr. Sepulveda (Anesthesiologist). Findings: Successful synchronized electrical cardioversion to sinus rhythm with 1 shock at 250 joules. Conclusion: Successful synchronized electrical cardioversion to sinus rhythm with 1 shock at 250 joules.
[2024-12-24 11:30] VITALS: BP 110/69; PULSE 73; RESP 20; O2SAT 95
--- NOTE | 2024-12-24 11:30 | ECG_ITS ---
Test Date: 2024-12-24 10:06:13 Measurements Intervals [place] Rate: 128 P: 0 VT: 0 QRS: -79 QRSD: 169 T: -6 QT: 320 QTc: 467 Interpretive Statements ATRIAL FLUTTER/TACHYCARDIA WITH RAPID VENTRICULAR RESPONSE RIGHT BUNDLE BRANCH BLOCK [120+ ms QRS DURATION, UPRIGHT V1, 40+ ms S IN I/aVL/V4/V5/V6] LEFT ANTERIOR FASCICULAR BLOCK [QRS AXIS <= -45, QR IN I, RS IN II] Compared to ECG 11/13/2024 04:56:52 HEART RATE HAS INCREASED Electronically Signed On 12-24-2024 11:27:34 CDT by Katie Stoll M.D.
[2024-12-24 11:45] VITALS: BP 101/74; PULSE 72; RESP 17; O2SAT 95
[2024-12-24 12:00] VITALS: BP 113/83; PULSE 72; RESP 18; O2SAT 98
[2024-12-24 12:15] VITALS: BP 114/82; PULSE 75; RESP 14; O2SAT 100
== END 2024-12-24 12:25 | disposition home or self-care (01) ==
PROVIDERS: PCP Nurse Practitioner Family; Visit Provider Internal Medicine
PROC: 5A2204Z Restoration of Cardiac Rhythm, Single (ICD-10-PCS; principal; 2024-12-24 11:30)
DX: I48.3 Typical atrial flutter (principal); I42.0 Dilated cardiomyopathy; I45.2 Bifascicular block; I10 Essential (primary) hypertension; F17.210 Nicotine dependence, cigarettes, uncomplicated; Z79.01 Long term (current) use of anticoagulants; Z79.51 Long term (current) use of inhaled steroids; Z79.84 Long term (current) use of oral hypoglycemic drugs; Z98.890 Other specified postprocedural states; Z82.49 Family history of ischemic heart disease and other diseases of the circulatory system
CPT/HCPCS: 36415; 80048; 83735; 92960; J7040

== ENCOUNTER 2024-12-31 13:13 | Outpatient (CLI) | payer MEDICARE, SELFPAY ==
--- NOTE | 2024-12-31 13:23 | ECG_ITS ---
Test Date: 2024-12-31 13:31:36 Measurements Intervals [place] Rate: 67 P: -52 OR: 250 QRS: -78 QRSD: 163 T: 52 QT: 432 QTc: 457 Interpretive Statements SINUS RHYTHM WITH FIRST DEGREE AV BLOCK RIGHT BUNDLE BRANCH BLOCK [120+ ms QRS DURATION, UPRIGHT V1, 40+ ms S IN I/aVL/V4/V5/V6] LEFT ANTERIOR FASCICULAR BLOCK [QRS AXIS <= -45, QR IN I, RS IN II] MODERATE T-WAVE ABNORMALITY, CONSIDER LATERAL ISCHEMIA [-0.1+ mV T-WAVE IN I/aVL/V5/V6] Compared to ECG 12/24/2024 11:10:52 T-wave abnormality now present Electronically Signed On 12-31-2024 13:58:39 CDT by Katie Stoll M.D.
== END 2024-12-31 13:14 | disposition home or self-care (01) ==
LOC: CHSCARD 13:17
PROVIDERS: PCP Nurse Practitioner Family; Visit Provider Specialist
DX: I48.91 Unspecified atrial fibrillation (principal); I44.0 Atrioventricular block, first degree; I45.2 Bifascicular block; R94.31 Abnormal electrocardiogram [ECG] [EKG]
CPT/HCPCS: 93005

== ENCOUNTER 2025-02-01 11:43 | Outpatient (CLI) | payer MEDICARE, SELFPAY ==
--- NOTE | 2025-02-01 12:00 | ECHO_ITS ---
Patient Info Name: Austin Morgan Age: 69 years : 1955 Gender: Male Ht: 73 in Wt: 240 lbs BSA: 2.40 m2 HR: 67 bpm BP: 166 / 102 mmHg Technical Quality: Good Exam Date: 02/01/2025 12:00 PM Patient Status: O Admit Date: 02/01/2025 Exam Type: CA echo doppler color flow Complete two-dimensional, color flow and Doppler transthoracic echocardiogram is performed. [employer] Dies: Nicol Morales Attending Provider: Honorio Huffman MD Summary 1. Complete two-dimensional, color flow and Doppler transthoracic echocardiogram is performed. 2. Left ventricular chamber dimension is normal. 3. Left ventricular systolic function is normal, estimated at 55-60. 4. There is mild concentric increased left ventricular wall thickness. 5. The left ventricular diastolic function is grade I diastolic dysfunction. 6. E/e' 12 is mildly elevated. 7. Left atrial chamber dimension is mildly enlarged. 8. There is mild aortic valve sclerosis. 9. There is trace tricuspid valve regurgitation. 10. No pulmonary hypertension, estimated pulmonary arterial systolic pressure is 23 mmHg. 11. The aortic root size at the sinus of Valsalva is mildly dilated at 4.3 cm. 12. The prox ascending aorta size is moderately dilated at 4.5 cm. Left Ventricle E/e' 12 is mildly elevated. Left ventricular chamber dimension is normal. Left ventricular systolic function is normal, estimated at 55-60. There is mild concentric increased left ventricular wall thickness. The left ventricular diastolic function is grade I diastolic dysfunction. Right Ventricle Right ventricular chamber dimension is normal. Right ventricular systolic function is normal and with normal TAPSE 2.5 cm. Left Atria Left atrial chamber dimension is mildly enlarged. Right Atria Right atrial chamber dimension is normal. Aortic Valve The aortic valve is trileaflet. There is mild aortic valve sclerosis. There is no aortic valve stenosis. There is no aortic valve regurgitation. Pulmonic Valve There is no pulmonic regurgitation. Mitral Valve There is no mitral valve stenosis. There is no mitral valve regurgitation. Tricuspid Valve There is trace tricuspid valve regurgitation. No pulmonary hypertension, estimated pulmonary arterial systolic pressure is 23 mmHg. Pericardium/Pleural There is no pericardial effusion. Inferior Vena Cava Normal inferior vena cava with >50% collapse upon inspiration consistent with normal right atrial pressure, 5 mmHg. Aorta The aortic root size at the sinus of Valsalva is mildly dilated at 4.3 cm. The prox ascending aorta size is moderately dilated at 4.5 cm. Left Ventricular Outflow Tract Name Value Normal LVOT 2D LVOT Diameter 2.3 cm LVOT Doppler LVOT Peak Velocity 95 cm/s LVOT Peak Gradient 4 mmHg LVOT Mean Gradient 2 mmHg LVOT VTI 18 cm LVOT VTI/AV VTI Ratio 0.8 LVOT Stroke Volume 75 ml LVOT CO 5.2 l/min LVOT CI 2.2 l/min/m2 Pulmonic Valve Name Value Normal PV Doppler PV Peak Velocity 125 cm/s PV Peak Gradient 6 mmHg Mitral Valve Name Value Normal MV Diastolic Function MV E Peak Velocity 69 cm/s MV A Peak Velocity 94 cm/s MV E/A 0.7 MV Decel Time (PW) 345 ms MV Annular TDI MV E/e' (Septal) 13.5 MV E/e' (Lateral) 12.2 MV E/e' (Average) 12.8 Tricuspid Valve Name Value Normal TV Regurgitation Doppler TR Peak Velocity 215 cm/s TR Peak Gradient 18 mmHg Estimated PAP/RSVP RA Pressure 5 mmHg <=5 PA Systolic Pressure 23 mmHg <36 RV Systolic Pressure 23 mmHg <36 TV Annular TDI TV Lateral Lacey s' Velocity 13.5 cm/s >=9.5 Aortic Valve Name Value Normal AV Doppler AV Peak Velocity 139 cm/s AV Peak Gradient 8 mmHg AV Mean Gradient 4 mmHg AV VTI 22 cm AV Area (Cont Eq VTI) 3.4 cm2 >=3.0 AV Area (Cont Eq Jason) 2.8 cm2 AV DI (Jason) 0.68 AV Regurgitation 2D LVOT Area 4.1 cm2 Ventricles Name Value Normal LV Dimensions 2D/MM IVS Diastolic Thickness (2D) 1.5 cm 0.6-1.0 LVID Diastole (2D) 5.1 cm 4.2-5.8 LVIW Diastolic Thickness (2D) 1.3 cm 0.6-1.0 LVID Systole (2D) 3.3 cm 2.5-4.0 LVOT Diameter 2.3 cm LV Mass (2D Cubed) 301.27 g 88.00-224.00 LV Mass Index (2D Cubed) 126 g/m2 49-115 Relative Wall Thickness (2D) 0.53 <=0.42 LV Fractional Shortening/Ejection Fraction 2D/MM LV Fractional Shortening (2D) 34 % 25-43 LV EF (2D Teichholz) 63 % LV Diastolic Volume (4C MOD) 129 ml LV EF (4C MOD) 60 % LV Diastolic Volume (2C MOD) 90 ml LV EF (2C MOD) 52 % LV Diastolic Volume (BP MOD) 110 ml 62-150 LV Diastolic Volume Index (BP MOD) 46 ml/m2 34-74 LV Systolic Volume (BP MOD) 48 ml 21-61 LV Systolic Volume Index (BP MOD) 20 ml/m2 11-31 LV EF (BP MOD) 56 % 52-72 LV Diastolic Length (4C) 10.3 cm LV Systolic Length (4C) 8.8 cm LV Stroke Volume (4C MOD) 78 ml Atria Name Value Normal LA Dimensions LA Volume (4C A-L) 34 ml LA Volume (BP A-L) 44 ml RA Dimensions RA Systolic Major Cruger Length (4C) 5.1 cm 2.1-2.7 RA Area (4C) 15.5 cm2 <=18.0 Report Signatures
== END 2025-02-01 11:44 | disposition home or self-care (01) ==
LOC: CHSIMG 11:45
PROVIDERS: PCP Nurse Practitioner Family; Visit Provider Specialist
DX: I42.0 Dilated cardiomyopathy (principal); I35.8 Other nonrheumatic aortic valve disorders
CPT/HCPCS: 93306

== ENCOUNTER 2025-04-04 14:53 | Outpatient (CLI) | payer MEDICARE, SELFPAY ==
--- NOTE | 2025-04-04 14:57 | ECG_ITS ---
Test Date: 2025-04-04 15:14:18 Measurements Intervals [place] Rate: 101 P: 0 NE: 0 QRS: -63 QRSD: 159 T: 1 QT: 369 QTc: 479 Interpretive Statements ATRIAL FIBRILLATION WITH RAPID VENTRICULAR RESPONSE RIGHT BUNDLE BRANCH BLOCK LEFT ANTERIOR FASCICULAR BLOCK ABNORMAL ECG Compared to ECG 12/31/2024 13:31:36 Sinus rhythm no longer present Electronically Signed On 04-04-2025 16:03:17 CDT by Dwight Olmedo D.O.
--- NOTE | 2025-04-05 04:44 | PCRCNOTE ---
04/04 1525- RT attempted to call Dr Olmedo at [facility] clinic regarding a fib results, no answer. Pt stated a fib is new, so RT suggested ER and patient refused.
== END 2025-04-04 14:54 | disposition home or self-care (01) ==
LOC: CHSCARD 14:54
PROVIDERS: PCP Nurse Practitioner Family; Visit Provider Internal Medicine Cardiovascular Disease
DX: I48.92 Unspecified atrial flutter (principal); I48.91 Unspecified atrial fibrillation; I45.2 Bifascicular block; R94.31 Abnormal electrocardiogram [ECG] [EKG]
CPT/HCPCS: 93005

== ENCOUNTER 2025-05-02 07:16 | Outpatient (CLI) | payer MEDICARE, SELFPAY ==
--- NOTE | 2025-05-02 07:19 | EST_ITS ---
Patient Info Name: Austin Morgan Age: 70 years : 1955 Gender: Male Ht: 73 in Wt: 237 lbs BSA: 2.38 m2 HR: 103 bpm BP: 124 / 96 mmHg Heart Rhythm: Atrial Fibrillation Technical Quality: Good Exam Date: 05/02/2025 7:19 AM Patient Status: O Admit Date: 05/02/2025 Exam Type: CA stress adrian w NM A regadenoson stress test was performed. Staff Referring Physician: Dwight Olmedo DO Attending Provider: Dwight Olmedo DO Summary 1. 1. Negative lexiscan stress test for ischemic ST changes by ECG criteria. 2. 2. Stable hemodynamics throughout the test. 3. 3. Nuclear scan to follow and will be reported separately. Please correlate with it. History/Risk Factors Hypertension: Yes Dyslipidemia: Yes Tobacco Use: Current - Frequency Unknown Protocol: LEXISCAN Stress ECG Details Stage: REST Duration (min): 0 min : 59 sec HR (bpm): 108 SBP (mmHg): 124 DBP (mmHg): 96 Stage: REST Duration (min): 2 min : 45 sec HR (bpm): 113 SBP (mmHg): 124 DBP (mmHg): 96 Stage: STAGE 1 Duration (min): 0 min : 23 sec HR (bpm): 128 SBP (mmHg): 124 DBP (mmHg): 96 Stage: RECOVERY Duration (min): 0 min : 36 sec HR (bpm): 105 SBP (mmHg): 124 DBP (mmHg): 96 Stage: RECOVERY Duration (min): 1 min : 36 sec HR (bpm): 113 SBP (mmHg): 124 DBP (mmHg): 96 Stage: RECOVERY Duration (min): 2 min : 36 sec HR (bpm): 104 SBP (mmHg): 129 DBP (mmHg): 91 Stage: RECOVERY Duration (min): 3 min : 36 sec HR (bpm): 121 SBP (mmHg): 99 DBP (mmHg): 82 Stage: RECOVERY Duration (min): 4 min : 36 sec HR (bpm): 125 SBP (mmHg): 118 DBP (mmHg): 71 Stage: RECOVERY Duration (min): 5 min : 36 sec HR (bpm): 113 SBP (mmHg): 118 DBP (mmHg): 71 Stage: RECOVERY Duration (min): 6 min : 36 sec HR (bpm): 113 SBP (mmHg): 84 DBP (mmHg): 49 Stage: RECOVERY Duration (min): 7 min : 36 sec HR (bpm): 128 SBP (mmHg): 89 DBP (mmHg): 47 Stage: RECOVERY Duration (min): 8 min : 36 sec HR (bpm): 106 SBP (mmHg): 89 DBP (mmHg): 47 Stage: RECOVERY Duration (min): 8 min : 57 sec HR (bpm): 127 SBP (mmHg): 89 DBP (mmHg): 47 Rest HR: 113 bpm Peak HR: 135 bpm Rest Sys BP: 124 mmHg Peak Sys BP: 129 mmHg Max Pred HR: 148 bpm % Max Pred HR: 91 % Target HR: 126 bpm Max RPP: 17,415 bpm*mmHg BP Response: Normal blood pressure response Termination Reason: Completed Protocol Cardiac Symptoms: None Total Time: 0 min : 23 sec Rest Carbajal BP: 96 mmHg Peak Carbajal BP: 91 mmHg Total Dose: 0.4 mg Resting ECG Atrial fibrillation with RVR, RBBB, Lt ant fascicular block. Stress ECG No abnormal ST/T wave changes. Arrhythmias No other arrhythmias. Report Signatures
--- NOTE | 2025-05-02 13:26 | WPDCARIOSTRE ---
Nuclear Stress Test INDICATIONS Indications: Atrial fibrillation PROCEDURE Procedure Performed: Myocardial Perf Spect-Multi Procedure: Patient underwent a lexiscan stress test and immediately was injected with 33.1 mCi of cardiolyte. Multiple tomographic images were obtained. These are of good quality. There is no evidence of perfusion defect with stress imaging. A separate resting images were obtained after patient was injectred with 10.3 mCi of cardiolyte. Multiple tomographic images were obtained. These are of good quality. There is no evidence of perfusion defect with rest imaging. CONCLUSION Conclusion: 1. Myocardial perfusion imaging demonstrating no perfusion defects with stress or rest imaging. 2. No evidence of reversible ischemia. 3. Left ventriculogram demonstrates normal measured ejection fraction of 55% with no wall motion abnormalities. 4. TID score 0.92 is not elevated.
== END 2025-05-02 07:17 | disposition home or self-care (01) ==
PROVIDERS: PCP Nurse Practitioner Family; Visit Provider Internal Medicine Cardiovascular Disease
DX: I50.9 Heart failure, unspecified (principal)
CPT/HCPCS: 78452; 93017; A9502; J2785

== ENCOUNTER 2025-06-17 07:17 | Outpatient (CLI) | payer MEDICARE, SELFPAY ==
--- NOTE | 2025-06-17 07:22 | ECG_ITS ---
Test Date: 2025-06-17 07:30:56 Measurements Intervals [place] Rate: 78 P: 0 UT: 0 QRS: -64 QRSD: 174 T: 39 QT: 420 QTc: 480 Interpretive Statements ATRIAL FIBRILLATION RIGHT BUNDLE BRANCH BLOCK [120+ ms QRS DURATION, UPRIGHT V1, 40+ ms S IN I/aVL/V4/V5/V6] LEFT ANTERIOR FASCICULAR BLOCK [QRS AXIS <= -45, QR IN I, RS IN II] Compared to ECG 04/04/2025 15:14:18 No significant changes Electronically Signed On 06-17-2025 17:29:52 [employer] AROUND by Jonas Littlejohn M.D.
== END 2025-06-17 07:18 | disposition home or self-care (01) ==
LOC: CHSLAB 07:18 → CHSCARD 07:21
PROVIDERS: PCP Nurse Practitioner Family; Visit Provider Internal Medicine Cardiovascular Disease
DX: I48.92 Unspecified atrial flutter (principal); I45.10 Unspecified right bundle-branch block; I44.4 Left anterior fascicular block
CPT/HCPCS: 93005